=== PATIENT | female | born 1950 | race Caucasian/White ===

== ENCOUNTER 2025-02-16 08:46 | Outpatient (CLI) | payer OTHER, MEDICARE, SELFPAY ==
--- OUTSIDE RECORDS SUMMARY | 2025-02-16 08:53 | XMS_ITS | Clinical Summary ---
Author Organization [facility] Address [address] [place] [address] Care Team Providers Care Pressure Washer Name Role Phone Kimberlee Mcneil Primary Care Provider [phone] Allergies Active Allergy Reactions Criticality Noted Date Comments Meperidine Vomiting Low 09/15/2017 IV demerol make her vomit Medications losartan (COZAAR) 100 mg tablet Take 1 tablet by mouth daily 05/12/2021 Active hydroCHLOROthia zide (HYDRODIURIL) 25 mg tablet Take 1 tablet by mouth daily 05/12/2021 Active atenoloL (TENORMIN) 25 mg tablet Take 1 tablet by mouth daily 08/12/2021 Active potassium chloride ER (KLOR-CON) 10 mEq CR tablet Take 2 capsules by mouth daily 01/13/2021 Active Active Problems Problem Noted Date Diagnosed Date Sensorineural hearing loss (SNHL) of both ears 0 11/17/2021 Assessment & Plan (11/17/2021 11:14 AM CDT): Will obtain work up for Dizziness at [place] Continue potassium Call if no improvement in Dizziness for follow up with either myself or Physical therapy Dizziness and giddiness 11/17/2021 Assessment & Plan (11/17/2021 11:14 AM CDT): Will obtain work up for Dizziness at [place] Continue potassium Call if no improvement in Dizziness for follow up with either myself or Physical therapy Altaf quezadaumen 11/17/2021 Assessment & Plan (11/17/2021 11:18 AM CDT): Will obtain work up for Dizziness at [place] Continue potassium Call if no improvement in Dizziness for follow up with either myself or Physical therapy Follow up in one year for recheck Social History Tobacco Use Types Packs/Day Years Used Date Smoking Tobacco: Former Cigarettes Q uit: 2001 Tobacco Cessation:Counseling Given: Not Answered Personal Safety Answer Date Recorded Getting School Help Needed Not on file 05/15 Comments Unknown Sex and Gender Information Value Date Recorded Sex Assigned at Not on file Legal Sex Female 10:54 AM CDT Gender Identity Not on file Sexual Orientation Not on file Last Filed Vital Signs Vital Sign Reading Time Taken Comments Blood Pressure 141/69 11/17/2021 10:37 AM CDT Pulse 74 11/17/2021 10:37 AM CDT Temperature 36.3 C (97.4 F) 11/17/2021 10:37 AM CDT Respiratory Rate - - Oxygen Saturation 98% 11/17/2021 10:37 AM CDT Inhaled Oxygen Concentration - - Weight 90.8 kg (200 lb 1.6 oz) 11/17/2021 10:37 AM CDT Height 170.2 cm (5' 7) 11/17/2021 10:37 AM CDT Body Mass Index 31.34 11/17/2021 10:37 AM CDT Plan of Treatment Not on file Insurance CHOICE PLUS [facility] HMO/PPO Address: [facility] [address] [place] [address] Care Teams Pressure Washer Relationship Specialty Start Date End Date Kimberlee Mcneil PA [address] [place] [address] PCP - General Bottom Worker 08/19/21
--- OUTSIDE RECORDS SUMMARY | 2025-02-16 08:53 | XMS_ITS | Encounter Summary ---
Author Organization [facility] Address [address] [place] [address] Phone Care Team Providers Care Industrial Economics Teacher Name Role Phone Kimberlee Mcneil Primary Care Provider + Bill Garrido MD Unavailable [phone] Reason for Visit * Reason Comments Medication Refill Encounter Details Date Type Department Care Team (Late st Contact Info) Description 05/11/2021 Refill [facility] [address] [place] [address] Kimberlee Mcneil PAC [address] [place] [address] Medication Refill Social History Tobacco Use Types Packs/Day Years Used Date Smoking Tobacco: Former Cigarettes Smokeless Tobacco: Never Alcohol Use Standard Drinks/Week Comments Not Currently 0 (1 standard drink = 0.6 oz pure alcohol) Hasn't drank since of daughter 44 years ago. Personal Choice. PHQ-2 Answer Date Recorded Total Score - Questions 1-9 0 0704/2020 Education Answer Date Recorded What is the highest level of school you have completed or the highest degree you have received? Bachelor's degree (e.g., BA, AB, BS) 07/22/2020 Sexually Active Control Partners Comments Yes Male Comments No Sex and Gender Information Value Date Recorded Sex Assigned at Not on file Legal Sex Female 9:09 PM CDT Gender Identity Not on file Sexual Orientation Not on file COVID-19 Exposure Response Date Recorded In the last month, have you been in contact with someone who was confirmed or suspected to have Coronavirus / COVID-19? No / Unsure 05/01/2021 8:32 AM VENTILATING ENGINEER documented as of this encounter Miscellaneous Notes * Telephone Encounter - Betsy Yepez RN - 05/12/2021 10:29 AM CDT Medication failed the protocol, provider to review and approve the medication order if appropriate. Requested Prescriptions Pending Prescriptions Disp Refills hydroCHLOROthiazide 25 MG Tablet [Pharmacy Med Name: HYDROCHLOROTHIAZIDE 25 MG TAB] 90 Tablet 1 Sig: TAKE 1 TABLET BY MOUTH EVERY DAY Diuretics Protocol Failed - 05/11/2021 12:21 AM Failed - Serum potassium on record in past 12 months No results found for: POTASSIUM, POCTK Failed - Serum sodium on record in past 12 months No results found for: SODIUM Failed - GFR on record in past 12 months No results found for: GFRNA Passed - Blood pressure on record in past 12 months Clinician-entered: BP Readings from Last 3 Encounters: 01/20/21 138/80 07/23/20 122/82 02/26/20 118/72 Patient-entered: No data recorded Passed - Visit with relevant provider in past 12 months or upcoming 90 days Recent Visits Date Type Provider Dept 01/20/21 Office Visit Kimberlee Mcneil PAC [facility] 07/23/20 Office Visit Kimberlee Mcneil PAC [facility] Showing recent visits within past 365 days and meeting all other requirements Future Appointments Date Type Provider Dept 07/21/21 Appointment Kimberele Mcneil PAC [facility] Showing future appointments within next 90 days and meeting all other requirements documented in this encounter Plan of Treatment Upcoming Encounters Date Type Department Care Team (Late st Contact Info) Description 02/28/2025 12:45 PM VENTILATING ENGINEER Telemedicine [facility] [address] [place] [address] Deepika Gifford, MOBILE APPLICATION ARCHITECT [address] [place] [address] Discharge Disposition: Discharged to home or Selfcare 03/06/2025 9:20 AM VENTILATING ENGINEER Immunization [facility] [address] [place] [address] 03/12/2025 1:00 PM VENTILATING ENGINEER Telemedicine [facility] [address] [place] [address] Deepika Gifford, MOBILE APPLICATION ARCHITECT [address] [place] [address] Discharge Disposition: Discharged to home or Selfcare 03/19/2025 10:40 AM VENTILATING ENGINEER Office Visit [facility] [address] [place] [address] Kimberlee Mcneil, PAC [address] [place] [address] documented as of this encounter Goals Goal Patient Goal Type Associated Problems Recent Progress Patient-Stated? Author ANXIETY Anxiety On track( 025 1:38 PM VENTILATING ENGINEER) No Deepika Gifford, MOBILE APPLICATION ARCHITECT Note: Goal: Mariela to be able to report decreased anxiety/panic attacks/ability to cope with stressors, to an acceptable level, within the next three month. Goal Reviewed with: patient Readiness to change: Ready to change Department associated with goal: [facility] Steps to achieve goal: Mariela counseled on stress management, during her 45 min individual therapy sessions, 1-2 times per month Mariela counseled on recognizing and challenging negative and unrealistic thoughts, during her 45 min individual therapy sessions, 1-2 times per month I would like to feel calm. I would like ways to cope with stress. within the next three months Behavioral Health On track( 025 1:38 PM VENTILATING ENGINEER) Yes Khalida Flores, MOBILE APPLICATION ARCHITECT Note: Goal Reviewed with: patient Readiness to change: Ready to change Department associated with goal: [facility] Steps to achieve goal: Mariela to be counseled on coping with anxiety, including deep breathing and other relaxation techniques, during her 45 min individual therapy sessions, 1-2 times per month [place] to be counseled on cognitive behavioral therapy for distress tolerance/emotional regulation, during her 45 min individual therapy sessions, 1-2 times per month documented as of this encounter Visit Diagnoses Not on filedocumented in this encounter Additional Health Concerns Infection Onset Date Last Indicated Resolved Time COVID - 19 Confirmed 09/23/2021 09/23/2021 022 12:16 AM CDT Assessment Noted Time PHQ-9 Depression Total Score: 0 08/31/19 21 10:00 AM CDT documented as of this encounter Care Teams Industrial Economics Teacher Relationship Specialty Start Date End Date Kimberlee Mcneil PAC [address] [place] [address] PCP - General Physician Trolley Car Mechanic 03/18/17 Bill Garrido MD [address] [facility] [address] [address] Consulting Physician Otolaryngology 01/03/25 documented as of this encounter
--- OUTSIDE RECORDS SUMMARY | 2025-02-16 08:53 | XMS_ITS | Encounter Summary ---
Author Organization [facility] Address [address] [place] [address] Phone Care Team Providers Care Processing Manager Name Role Phone Kimberlee Mcneil Primary Care Provider + Bill Garrido MD Unavailable [phone] Reason for Visit * Reason Comments Medication Refill Encounter Details Date Type Department Care Team (Late st Contact Info) Description 06/30/2020 Refill [facility] [address] [place], [place] [id number] Kimberlee Mcneil, PAC [address] [place] [address] Medication Refill Social History Tobacco Use Types Packs/Day Years Used Date Smoking Tobacco: Former Cigarettes Smokeless Tobacco: Never Alcohol Use Standard Drinks/Week Comments Yes 0 (1 standard drink = 0.6 oz pur e alcohol) PHQ-2 Answer Date Recorded Total Score - Questions 1-9 0 09/2019 Comments No Sex and Gender Information Value Date Recorded Sex Assigned at Not on file Legal Sex Female 9:09 PM CDT Gender Identity Not on file Sexual Orientation Not on file documented as of this encounter Miscellaneous Notes * Telephone Encounter - Jenny Jon RN - 07/01/2020 11:20 AM CDT Medication failed the protocol, provider to review and approve the medication order if appropriate. Requested Prescriptions Pending Prescriptions Disp Refills hydroCHLOROthiazide 25 MG Tablet [Pharmacy Med Name: HYDROCHLOROTHIAZIDE 25 MG TAB] 30 Tablet 8 Sig: TAKE 1 TABLET BY MOUTH EVERY DAY Diuretics Protocol Failed - 06/30/2020 12:24 AM Failed - Normal serum creatinine in past 12 months No results found for: CREATININE Failed - Normal serum potassium in past 12 months No results found for: POTASSIUM, POCTK Failed - Normal serum sodium in past 12 months No results found for: SODIUM Passed - Blood pressure on record in past 12 months Clinician-entered: BP Readings from Last 3 Encounters: 02/26/20 118/72 08/07/19 132/78 10/12/18 132/64 Patient-entered: No data recorded Passed - Visit with relevant provider in past 12 months or upcoming 90 days Recent Visits Date Type Provider Dept 02/26/20 Office Visit Kimberlee Mcneil PAC [facility] 08/07/19 Office Visit Kimberlee Mcneil PAC [facility] Showing recent visits within past 365 days and meeting all other requirements Future Appointments Date Type Provider Dept 08/12/20 Appointment Kimberlee Mcneil PAC [facility] Showing future appointments within next 90 days and meeting all other requirements documented in this encounter Plan of Treatment Upcoming Encounters Date Type Department Care Team (Late st Contact Info) Description 02/28/2025 12:45 PM ADVICE CLERK [facility]icine [facility] [address] [place] [address] Deepika Gifford, RESTAURANT KITCHEN AND SERVICE MANAGER [address] [place] [address] Discharge Disposition: Discharged to home or Selfcare 03/06/2025 9:20 AM ADVICE CLERK Immunization [facility] [facility] [address] [place] [address] 03/12/2025 1:00 PM ADVICE CLERK [facility]medicine [facility] [address] [place] [address] Deepika Gifford, RESTAURANT KITCHEN AND SERVICE MANAGER [address] [place] [address] Discharge Disposition: Discharged to home or Selfcare 03/19/2025 10:40 AM ADVICE CLERK Office Visit [facility] [address] [place] [address] Kimberlee Mcneil PAC [address] [place] [address] documented as of this encounter Visit Diagnoses Not on filedocumented in this encounter Additional Health Concerns Infection Onset Date Last Indicated Resolved Time COVID - 19 Confirmed 09/23/2021 09/23/2021 022 12:16 AM CDT Assessment Noted Time PHQ-9 Depression Total Score: 0 08/07/19 20 8:42 AM CDT documented as of this encounter Care Teams Processing Manager Relationship Specialty Start Date End Date Kimberlee Mcneil PAC [address] [place] [address] PCP - General Physician Marine Electrician Helper 03/18/17 Bill Garrido MD [address] [address] Consulting Physician Otolaryngology 01/03/25 documented as of this encounter
--- OUTSIDE RECORDS SUMMARY | 2025-02-16 08:53 | XMS_ITS | Clinical Summary ---
Author Organization [facility] Visible Measures Address [address] [place] [address] Care Team Providers Care Scheduling Manager Name Role Phone Kimberlee Mcneil Primary Care Provider [phone] Source Comments [facility] Affiliates and Associated Physician Practices is amultiple site organization consisting of ambulatory clinics and hospital sitesin [place], [place], [place] and [place]. This disclosure is being madepursuant to the Care Everywhere program and may not contain all information available regarding this patient. Last updated 17.[facility]ible Measures Allergies Active Allergy Reactions Criticality Noted Date Comments Atorvastatin Psychiatric Medium 09/03/2022 Meperidine Vomiting Low 09/15/2017 IV demerol make her vomit IV demerol make her vomit Medications * Be aware that medications may not be up to date on this document. Alwaysverify current medications with the patient. acetaminophen (Tylenol) 500 MG tablet Take 1 (one) tablet by mouth every 4 hours as needed Active hydroCHLOROthia zide (Hydrodiuril) 25 MG tablet Take 1 (one) tablet by mouth once daily 3 Active losartan (Cozaar) 100 MG tablet Take 1 (one) tablet by mouth once daily 3 Active potassium chloride ER (Micro-K) 10 MEQ capsule Take 3 (three) capsules by mouth once daily 3 Active ondansetron (Zofran) 8 MG tabletIndicatio ns:Cancer Chemotherapy-In duced Nausea and Vomiting Take 1 (one) tablet by mouth every 8 hours as needed for Nausea/Vomiting Reasons: Nausea and Vomiting caused by Cancer Chemotherapy 30 tablet 3 4 Active Additional Information Patient not taking.Reason: Other (ntot needed), Reported on 01/10/2025 Loperamide HCl (IMODIUM A-D PO) Active prochlorperazin e (Compazine) 10 MG tabletIndicatio ns:Malignant neoplasm of exocervix (HCC),Chemother apy induced nausea and vomiting Take 1 (one) tablet by mouth every 8 hours as needed for Nausea/Vomiting 25 tablet 4 Active Additional Information Patient not taking.Reason: Other, Reported on 01/10/2025 omeprazole (PriLOSEC) 20 MG capsuleIndicati ons:Gastroesoph ageal reflux disease with esophagitis without hemorrhage TAKE 1 CAPSULE BY MOUTH EVERY DAY 90 capsule 1 4 Active vitamin D, ergocalciferol, (Drisdol) 1.25 MG (49376 UT) capsule Take 1 (one) capsule by mouth every 7 days (once a week) 4 Active lidocaine-prilo laron (Emla) 2.5-2.5 % cream APPLY 1 APPLICATION TO PORT 30-60 MINS PRIOR TO CHEMO/LABS 4 Active Magnesium Oxide -Mg Supplement 400 (240 Mg) MG TAKE 1 TABLET BY MOUTH EVERY DAY X7 DAYS 4 Active cyanocobalamin (Vitamin B-12) injection Inject 1,000 (one thousand) mcg into muscle 4 02/20/20 25 Active atenolol (Tenormin) 50 MG tablet Take 1 (one) tablet by mouth once daily 4 Active fluticasone propionate (Flonase) 50 MCG/ACT nasal spray [place] 2 (two) sprays into the nose once daily 5 Active Active Problems Problem Noted Date Diagnosed Date Hypokalemia 04/24/2023 Cervical cancer 03/19/2023 Cancer Staging:Clinical stage from 03/22/2023:FIGO Stage IIB(cT2b, cNX, cM0) - Signed by Tae Hernández MD on 03/22/2023 Sensorineural hearing loss (SNHL) of both ears 0 11/17/2021 04/28/2023 Overview (04/28/2023): Last Assessment & Plan: Will obtain work up for Dizziness at [facility] Continue potassium Call if no improvement in Dizziness for follow up with either myself or Physical therapy Generalized anxiety disorder 10/16/2020 Osteoporosis 03/16/2015 04/28/2023 Essential hypertension 03/16/2015 Encounters Date Type Department Care Team Description 01/15/2025 Telephone [facility] - SWEATBAND PERFORATOR [address] [place] [address] Trish Starks RN Results 01/10/2025 2:30 PM ANIMAL CARE TAKER Office Visit [facility] - SWEATBAND PERFORATOR [address] [place] [address] José Miguel Grewal MD Malignant neoplasm of exocervix (HCC) (Primary Dx) 01/10/2025 Travel 12/13/2024 11:29 AM CDT - 12/13/2024 11:59 PM CDT Hospital Encounter [facility] [address] [place] [address] José Miguel Grewal MD Discharge Disposition: Home or Self Care 12/13/2024 Travel from Last 3 Months Family History Medical History Relation Name Comments Cancer - Prostate Father Cancer - Lung Mother Relation Name Status Comments Father Mother Social History Tobacco Use Types Packs/Day Years Used Date Smoking Tobacco: Former Cigarettes Tobacco Cessation:Counseling Given: Not Answered Alcohol Use Standard Drinks/Week Comments Never 0 (1 standard drink = 0.6 oz pur e alcohol) PHQ-2 Answer Date Recorded Patient Health Questionnaire-2 Score 0 10/11/2024 Comments No Sex and Gender Information Value Date Recorded Sex Assigned at Not on file Legal Sex Female 12:02 PM CDT Gender Identity Not on file Sexual Orientation Not on file Last Filed Vital Signs Vital Sign Reading Time Taken Comments Blood Pressure 172/80 01/10/2025 2:08 PM ANIMAL CARE TAKER Pulse 66 12/13/2024 12:38 PM CDT Temperature 36 C (96.8 F) 12/13/2024 12:38 PM CDT Respiratory Rate 16 09/12/2024 10:0 5 AM CDT Oxygen Saturation 100% 06/13/2024 9:42 AM CDT Inhaled Oxygen Concentration - - Weight 105.4 kg (232 lb 6.4 oz) 01/10/2025 2:08 PM ANIMAL CARE TAKER Height 170.2 cm (5' 7) 01/10/2025 2:08 PM ANIMAL CARE TAKER Body Mass Index 36.4 01/10/2025 2:08 PM ANIMAL CARE TAKER Plan of Treatment Upcoming Encounters Date Type Department Care Team (Late st Contact Info) Description 03/15/2025 12:30 PM ANIMAL CARE TAKER Appointment [facility] [address] [place] [address] José Miguel Grewal MD [address] [place] [phone] 04/11/2025 2:30 PM ANIMAL CARE TAKER Office Visit [facility] - SWEATBAND PERFORATOR [address] [place] [address] José Miguel Grewal MD [address] [place] [address] Health Maintenance Due Date Last Done Comments COLOGUARD (AGES 45-75) - COLON CA SCREENING 1952 COLON MONITORING 1952 COLONOSCOPY - COLON CA SCREENING 1952 CT COLONOGRAPHY - COLON CA SCREENING 1952 Colorectal Cancer Screening 1952 FIT - COLON CA SCREENING 1952 FLEX SIG - COLON CA SCREENING 1952 HEPATITIS C SCREENING 08/18/1970 DTAP/TDAP/TD VACCINES (1 - Tdap) 08/23/1971 PNEUMOCOCCAL VACCINE 50+ (1 of 1 - PCV) 2002 Respiratory Syncytial Virus (RSV) Vaccine Pt: or over 60 yrs (1 - Risk 50-74 years 1-dose series) 2002 ZOSTER VACCINE (1 of 2) 2002 MAMMOGRAM 04/16/2024 04/16/2022, 04/01, 03/17/2021, Additional history exists COVID-19 VACCINE ( season) 2024 01/11/2022, 01/08/2021, 05/18/2020, Additional history exists INFLUENZA VACCINE (#1) 2024 4, 11/29/2022, 12/04/2021, Additional history exists SCREENING FOR DIABETES 06/27/2026 4, 06/21/2023, 06/14/2023, Additional history exists LIPID TESTING 02/24/2029 02/25/2024 BONE DENSITY TESTING Completed 03/17/2021, 09/22/19 18 DEPRESSION SCREENING Completed 03/15/2024, 03/24/19 24 HEPATITIS B VACCINE Aged Out No longe r eligible based on patient's age to complete this topic HIB VACCINE Aged Out No longer eligi ble based on patient's age to complete this topic HPV VACCINE Aged Out No longer eligi ble based on patient's age to complete this topic MENINGOCOCCAL (Group B) VACCINE SHARED DECISION-MAKING Aged Out No longer eligible based on patient's age to complete this topic MENINGOCOCCAL GROUPS A/C/Y/W VACCINE Aged Out No longer eligible based on patient's age to complete this topic Medical Devices Implanted Type Area Physical Optics Teacher Device Identifier Shelf Expiration Date Model / Serial / Lot Alex Sleeve Implanted:Qty: 1 on 05/25/2023 by José Miguel Grewal MD at [facility] N/A: Vagina NA / / Procedures Procedure Name Priority Date/Time Associated Diagnosis Comments PAP IMAGE-GUIDED Routine 01/10/2025 2:25 PM ANIMAL CARE TAKER Malignant neoplasm of exocervix (HCC) COMPREHENSIVE METABOLIC PANEL LIBBY 06/28/2023 9:41 AM CDT Malignant neoplasm of endocervix from Last 3 Months or Most Recently Relevant to Health Maintenance Results * PAP IMAGE-GUIDED (01/10/2025 2:25 PM ANIMAL CARE TAKER) Case Report Gynecologic Cytology Report Case: [id number] Authorizing Provider: José Miguel Grewal MD Collected: 01/10/2025 02:25 PM Ordering Location: [facility] - Received: 01/10/2025 02:25 PM SWEATBAND PERFORATOR First Screen: Edgar Kasper CT(ASCP) Pathologist: Benny Carlos MD Specimen: THINPREP - IMAGE GUIDED, Cervix/Endocervix 01/12/2025 3:33 PM ANIMAL CARE TAKER [facility] LMP n/a 01/12/2025 3:33 PM ANIMAL CARE TAKER [facility] Menstrual Status Postmenopausal 12/30 3:33 PM ANIMAL CARE TAKER [facility] Specimen Adequacy Satisfactory for evaluation, endocervical/trans formation zone component present. 01/12/2025 3:33 PM ANIMAL CARE TAKER [facility] Categorization Negative for intraepithelial lesion or malignancy. 01/12/2025 3:33 PM ANIMAL CARE TAKER [facility] Interpretation FILENET ARCHITECT Negative for Intraepithelial lesion or malignancy. Reactive cellular changes present. 01/12/2025 3:33 PM ANIMAL CARE TAKER [facility] at 1533 ANIMAL CARE TAKER Pap Footnote The Pap Smear is a screening test. False positive and false negative results occur. Negative results do not preclude abnormalities, thus clinical correlation is required. This specimen was evaluated by the ThinPrep Imaging System along with an additional manual rescreening by a railroad emergency services manager and/or pathologist. 01/12/2025 3:33 PM ANIMAL CARE TAKER [facility] Embedded Images 3:33 PM [facility] Pathology/Cytolo gy MISCELLANEOUS SAMPLES / Unknown Collection / Unknown 01/10/2025 2:25 PM ANIMAL CARE TAKER 01/10/2025 2:25 PM ANIMAL CARE TAKER us José Miguel Grewal MD LAB - PATHOLOGY/CYTOLOGY ORDER JACQUI Final Result [facility] [address] [place] [address], [facility] [phone] * (ABNORMAL) COMPREHENSIVE METABOLIC PANEL (06/28/2023 9:41 AM CDT) Glucose 103 70 - 105 mg/dL 06/28/2023 9:58 AM CDT [facility] Sodium 140 136 - 145 mmol/L 06/28/2023 9:58 AM [facility] Potassium 4.0 3.5 - 5.1 mmol/L 06/28/2023 9:58 AM [facility] Chloride 106 98 - 107 mmol/L 06/28/2023 9:58 AM [facility] CO2 24 22 - 29 mmol/L 06/28/2023 9:58 AM [facility] Calcium 9.3 8.4 - 10.4 mg/dL 06/28/2023 9:58 AM [facility] Anion Gap 10 6 - 16 mmol/L 06/28/2023 9:58 AM [facility] BUN 24 7 - 26 mg/dL 06/28/2023 9:58 AM [facility] Creatinine 1.29(H) 0.57 - 1.11 mg/dL 06/28/2023 9:58 AM [facility] Alkaline Phosphatase 90 40 - 150 U/L 06/28/2023 9:58 AM [facility] ALT 11 0 - 55 U/L 06/28/2023 9:58 AM [facility] AST 14 5 - 34 U/L 06/28/2023 9:58 AM [facility] Protein Total 6.5 6.4 - 8.3 gm/dL 06/28/2023 9:58 AM [facility] Albumin 3.3(L) 3.4 - 5.0 gm/dL 06/28/2023 9:58 AM [facility] Bilirubin Total 0.5 0.2 - 1.2 mg/dL 06/28/2023 9:58 AM [facility] eGFR by CKD-EPI 45(L) >=90 mL/min/1.7 3 m2 06/28/2023 9:58 AM [facility] Blood BLOOD SPECIMEN / Unknown Venipuncture / Unknown 06/28/2023 9:41 AM CDT 06/28/2023 9:41 AM T us José Miguel Grewal MD LAB - CHEMISTRY ORDERABLES Fin al Result [facility] [address] [place] [address] from Last 3 Months or Most Recently Relevant to Health Maintenance Insurance [facility] MEDICARE Care Teams Scheduling Manager Relationship Specialty Start Date End Date Kimberlee Mcneil PA [address] [place] [address] PCP - General Physician Aerial Crop Duster 03/10/23
--- OUTSIDE RECORDS SUMMARY | 2025-02-16 08:53 | XMS_ITS | Encounter Summary ---
Author Organization [facility] Address [address] [place] [address] Phone Care Team Providers Care Fishing Rod Trimmer Name Role Phone Kimberlee Mcneil Primary Care Provider + Bill Garrido MD Unavailable [phone] Encounter Details Date Type Department Care Team (Late st Contact Info) Description 02/10/2024 Behavioral Health Patient Survey [facility] [address] [place] [phone] Deepika Gifford, [facility] [address] [place] [address] Social History Tobacco Use Types Packs/Day Years Used Date Smoking Tobacco: Former Cigarettes 1 30 Smokeless Tobacco: Never Alcohol Use Standard Drinks/Week Comments Not Currently 0 (1 standard drink = 0.6 oz pure alcohol) Hasn't drank since of daughter 44 years ago. Personal Choice. [facility] Utilities Answer Date Recorded In the past 12 months has [place], gas, oil, or water company threatened to shut off services in your home? No 07/06/2023 Social Connection and Isolation Panel Answer Date Recorded In a typical week, how many times do you talk on the phone with family, friends, or neighbors? More than three times a week 07/06/2023 How often do you get togethe r with friends or relatives? Once a week 07/06/2023 How often do you attend chur ch or oriental orthodox services? More than 4 times per year 07/06/2023 Do you belong to any clubs o r organizations such as temple groups, unions, fraternal or athletic groups, or school groups? Yes 07/06/2023 How often do you attend meet ings of the clubs or organizations you belong to? 1 to 4 times per year 07/06/2023 Are you , , di vorced, , never , or living with a partner? 07/06/2023 AUDIT-C Answer Date Recorded Q1: How often do you have a drink containing alcohol? Never 07/06/2023 Q2: How many drinks containi ng alcohol do you have on a typical day when you are drinking? Patient does not drink Q3: How often do you have si x or more drinks on one occasion? Never 07/06/2023 Overall Financial Resource Strain (CARDIA) Answe r Date Recorded How hard is it for you to pa y for the very basics like food, housing, medical care, and heating? Not hard at all 07/06/2023 PHQ-2 Answer Date Recorded Total Score - Questions 1-9 0 07/2021 [facility] - Occupational Stress Questionnaire Answer Date Recorded Do you feel stress - tense, restless, nervous, or anxious, or unable to sleep at night because your mind is troubled all the time - these days? Rather much 07/06/2023 Exercise Vital Sign Answer Date Recorde d On average, how many days pe r week do you engage in moderate to strenuous exercise (like a brisk walk)? 0 days 07/06/2023 On average, how many minutes do you engage in exercise at this level? 0 min 07/06/2023 Hunger Vital Sign Answer Date Recorded Within the past 12 months, y ou worried that your food would run out before you got the money to buy more. Never true 07/06/19 24 Within the past 12 months, t he food you bought just didn't last and you didn't have money to get more. Never true 07/06/2023 PRAPARE - Transportation Answer Date Re corded In the past 12 months, has l ack of transportation kept you from medical appointments or from getting medications? No 08/2023 In the past 12 months, has l ack of transportation kept you from meetings, work, or from getting things needed for daily living? No 07/06/2023 Housing Stability Vital Sign Answer Gadiel e Recorded In the last 12 months, was t here a time when you were not able to pay the mortgage or rent on time? No 07/06/2023 In the last 12 months, how many places have you lived? 1 07/06/2023 In the last 12 months, was t here a time when you did not have a steady place to sleep or slept in a prison (including now)? No 07/06/2023 Education Answer Date Recorded What is the [...] on file documented as of this encounter Plan of Treatment Upcoming Encounters Date Type Department Care Team (Late st Contact Info) Description 02/28/2025 12:45 PM MANAGER CORPORATE STRATEGY Telemedicine [facility] [address] [place] [address] Deepika Gifford, [employer] [employer] [address] [place] [address] Discharge Disposition: Discharged to home or Selfcare 03/06/2025 9:20 AM MANAGER CORPORATE STRATEGY Immunization [facility] - [facility] - [place] [address] [place] [address] 03/12/2025 1:00 PM MANAGER CORPORATE STRATEGY Telemedicine [facility] [address] [place] [address] Deepika Gifford, [employer] [employer] [address] [place] [address] Discharge Disposition: Discharged to home or Selfcare 03/19/2025 10:40 AM MANAGER CORPORATE STRATEGY Office Visit [facility] - [facility] [address] [place] [address] Alizescoobyyasmine Kimberlee Mcdonough, PAC [address] [place] [address] documented as of this encounter Goals Goal Patient Goal Type Associated Problems Recent Progress Patient-Stated? Author ANXIETY Anxiety On track( 025 1:38 PM MANAGER CORPORATE STRATEGY) No Deepika Gifford, BANK RUNNER Note: Goal: Mariela to be able to report decreased anxiety/panic attacks/ability to cope with stressors, to an acceptable level, within the next three month. Goal Reviewed with: patient Readiness to change: Ready to change Department associated with goal: [facility] Steps to achieve goal: [...] Behavioral Health On track( 025 1:38 PM MANAGER CORPORATE STRATEGY) Yes Khalida Flores LCSW Note: Goal Reviewed with: patient Readiness to change: Ready to change Department associated with goal: [facility] Steps to achieve goal: Mariela to be counseled on coping with anxiety, including deep breathing and other relaxation techniques, during her 45 min individual therapy sessions, 1-2 times per month Mariela to be counseled on cognitive behavioral therapy for distress tolerance/emotional regulation, during her 45 min individual therapy sessions, 1-2 times per month documented as of this encounter Visit Diagnoses Not on filedocumented in this encounter Additional Health Concerns Assessment Noted Time PHQ-9 Depression Total Score: 0 08/31/19 21 10:00 AM CDT documented as of this encounter Care Teams Fishing Rod Trimmer Relationship Specialty Start Date End Date Kimberlee Mcneil PAC [address] [place] [address] PCP - General Physician Channel Worker 03/18/17 Bill Garrido MD [address] [place] [address] [address] Consulting Physician Otolaryngology 01/03/25 documented as of this encounter
--- OUTSIDE RECORDS SUMMARY | 2025-02-16 08:53 | XMS_ITS | Encounter Summary ---
Author Organization [facility] Address [address] [place] [address] Phone Care Team Providers Care Superintendent Meters Name Role Phone Kimberlee Mcneil Primary Care Provider + Bill Garrido MD Unavailable [phone] Reason for Visit * Reason Comments Medication Refill Encounter Details Date Type Department Care Team (Late st Contact Info) Description 08/09/2021 Refill [facility] [address] [place] [address] Kimberlee Mcneil PAC [address] [place] [address] Medication Refill Social History Tobacco Use Types Packs/Day Years Used Date Smoking Tobacco: Former Cigarettes 1 30 Smokeless Tobacco: Never Alcohol Use Standard Drinks/Week Comments Not Currently 0 (1 standard drink = 0.6 oz pure alcohol) Hasn't drank since of daughter 44 years ago. Personal Choice. PHQ-2 Answer Date Recorded Total Score - Questions 1-9 0 06/30 Education Answer Date Recorded What is the [...] Exposure Response Date Recorded In the last 10 days, have yo u been in contact with someone who was confirmed or suspected to have Coronavirus/COVID-19? No / Unsure 07/24/2021 9:05 AM CDT documented as of this encounter Miscellaneous Notes * Telephone Encounter - Karmen Andersen APRN, CNP - 08/11/2021 5:49 PM CDT Levels have not been checked in over a year and was within range last time. * Telephone Encounter - Betsy Yepez RN - 08/11/2021 10:44 AM CDT Medication failed the protocol, provider to review and approve the medication order if appropriate. Requested Prescriptions Pending Prescriptions Disp Refills ergocalciferol (VITAMIN D) 75122 UNIT Capsule [Pharmacy Med Name: VITAMIN D2 1.25MG(50,000 UNIT)] 4Capsule 5 Sig: TAKE 1 CAPSULE BY MOUTH ONCE PER WEEK Vitamin Supplements (Adult) Protocol Failed - 08/09/2021 1:31 PM Failed - Vitamin D less than 1.25mg Passed - Visit with relevant provider in past 12 months or upcoming 90 days Recent Visits Date Type Provider Dept 07/21/21 Office Visit Kimberlee Mcneil PAC [facility] 01/20/21 Office Visit Kimberlee Mcneil PAC [facility] Showing recent visits within past 365 days and meeting all other requirements Future Appointments Date Type Provider Dept 09/03/21 Appointment Kimberlee Mcneil PAC [facility] Showing future appointments within next 90 days and meeting all other requirements documented in this encounter Plan of Treatment Upcoming Encounters Date Type Department Care Team (Late st Contact Info) Description 02/28/2025 12:45 PM PHARMACOLOGY ASSOCIATE Telemedicine [facility] [address] [place] [address] Deepika Gifford, ELEVATOR CONSTRUCTOR SUPERVISOR [address] [place] [address] Discharge Disposition: Discharged to home or Selfcare 03/06/2025 9:20 AM PHARMACOLOGY ASSOCIATE Immunization [facility] [place] [place] [address] [place] [address] 03/12/2025 1:00 PM PHARMACOLOGY ASSOCIATE Telemedicine [facility] [address] [place] [address] Deepika Gifford, ELEVATOR CONSTRUCTOR SUPERVISOR [address] [place] [address] Discharge Disposition: Discharged to home or Selfcare 03/19/2025 10:40 AM PHARMACOLOGY ASSOCIATE Office Visit [facility] [place] [place] [address] [place] [address] Kimberlee Mcneil, [facility] [address] [place] [address] documented as of this encounter Goals Goal Patient Goal Type Associated Problems Recent Progress Patient-Stated? Author ANXIETY Anxiety On track( 025 1:38 PM PHARMACOLOGY ASSOCIATE) No Deepika Gifford, ELEVATOR CONSTRUCTOR SUPERVISOR Note: Goal: Mariela to be able to report decreased anxiety/panic attacks/ability to cope with stressors, to an acceptable level, within the next three month. Goal Reviewed with: patient Readiness to change: Ready to change Department associated with goal: [facility] Steps [...] Behavioral Health On track( 025 1:38 PM PHARMACOLOGY ASSOCIATE) Yes Khalida Flores, ELEVATOR CONSTRUCTOR SUPERVISOR Note: Goal Reviewed with: patient Readiness to change: Ready to change Department associated with goal: [facility] Steps to achieve [...] documented as of this encounter Care Teams Superintendent Meters Relationship Specialty Start Date End Date Kimberlee Mcneil PAC [address] [place] [address] PCP - General Physician Maid Housekeeper 03/18/17 Bill Garrido MD [address] [facility] [place] [address] [address] Consulting Physician Otolaryngology 01/03/25 documented as of this encounter
--- OUTSIDE RECORDS SUMMARY | 2025-02-16 08:53 | XMS_ITS | Encounter Summary ---
Author Organization [facility] Address [address] [place] [address] Phone Care Team Providers Care Lamp Developer Name Role Phone Kimberlee Mcneil Primary Care Provider + Bill Garrido MD Unavailable [phone] Reason for Visit * Reason Comments Medication Refill Encounter Details Date Type Department Care Team (Late st Contact Info) Description 08/11/2021 Refill [facility] [address] [place] [address] Kimberlee Mcneil PAC [address] [place] [address] Medication Refill Social History Tobacco Use Types [...] Telephone Encounter - Betsy Yepez RN - 08/12/2021 2:51 PM CDT Medication failed the protocol, provider to review and approve the medication order if appropriate. Requested Prescriptions Pending Prescriptions Disp Refills busPIRone (BUSPAR) 5 MG Tablet [Pharmacy Med Name: BUSPIRONE HCL 5 MG TABLET] 90 Tablet 5 Sig: TAKE 1 TABLET BY MOUTH THREE TIMES A DAY Buspirone (6 Month Refill Only) Protocol Failed - 08/11/2021 5:58 PM Failed - Patient has established therapy with Buspirone for at least 6 months Passed - Visit with relevant provider in past 6 months or upcoming 90 days Recent Visits Date Type Provider Dept 07/21/21 Office Visit Kimberlee Mcneil PAC [facility] Showing recent visits within past 182 days and meeting all other requirements Future Appointments Date Type Provider Dept 09/03/21 Appointment Kimberlee Mcneil PAC [facility] Showing future appointments within next 90 days and meeting all other requirements Passed - Has an encounter in the past 6 months with a depression or anxiety visit diagnosis atenolol (TENORMIN) 25 MG Tablet [Pharmacy Med Name: ATENOLOL 25 MG TABLET] 90 Tablet 1 Sig: TAKE 1 TABLET BY MOUTH EVERY DAY Atenolol Protocol Passed - 08/11/2021 5:58 PM Passed - BP on record in the past year Clinician-entered: BP Readings from Last 3 Encounters: 07/21/21 148/80 01/20/21 138/80 07/23/20 122/82 Patient-entered: No data recorded Passed - Visit with relevant provider in past 12 months or upcoming 90 days Recent Visits Date Type Provider Dept 07/21/21 Office Visit Kimberlee Mcneil PAC [facility] 01/20/21 Office Visit Kimberlee Mcneil PAC [facility] Showing recent visits within past 365 days and meeting all other requirements Future Appointments Date Type Provider Dept 09/03/21 Appointment Chelyyasmine AnnieSAULO [facility] Showing future appointments within next 90 days and meeting all other requirements documented in this encounter Plan of Treatment Upcoming Encounters Date Type Department Care Team (Late st Contact Info) Description 02/28/2025 12:45 PM BUILD TECHNICIAN Telemedicine [facility] [address] [place] [address] Deepika Gifford, BUTTON BROACHER [address] [place] [address] Discharge Disposition: Discharged to home or Selfcare 03/06/2025 9:20 AM BUILD TECHNICIAN Immunization [facility] [address] [place] [address] 03/12/2025 1:00 PM BUILD TECHNICIAN Telemedicine [facility] Services [address] [place] [address] Deepika Gifford, BUTTON BROACHER [address] [place] [address] Discharge Disposition: Discharged to home or Selfcare 03/19/2025 10:40 AM BUILD TECHNICIAN Office Visit [facility] [address] [place] [address] Kimberlee Mcneil, PAC [address] [place] [address] documented as of this encounter Goals Goal Patient Goal Type Associated Problems Recent Progress Patient-Stated? Author ANXIETY Anxiety On track( 025 1:38 PM BUILD TECHNICIAN) No Deepika Gifford, BUTTON BROACHER Note: Goal: Mariela to be able to report decreased anxiety/panic attacks/ability to cope with stressors, to an acceptable level, within the next three month. Goal Reviewed with: patient Readiness to change: Ready to change Department associated with goal: [facility] Steps to achieve [...] Behavioral Health On track( 025 1:38 PM BUILD TECHNICIAN) Yes Khalida Flores, BUTTON BROACHER Note: Goal Reviewed with: patient Readiness to change: Ready to change Department associated with goal: [facility] Steps to achieve [...] documented as of this encounter Care Teams Lamp Developer Relationship Specialty Start Date End Date Kimberlee Mcneil PAC [address] [place] [address] PCP - General Physician Plater Supervisor 03/18/17 Bill Garrido MD [address] [address] Consulting Physician Otolaryngology 01/03/25 documented as of this encounter
--- OUTSIDE RECORDS SUMMARY | 2025-02-16 08:53 | XMS_ITS | Encounter Summary ---
Author Organization [facility] Address [address] [place] [address] Phone Care Team Providers Care Disc Jockey Name Role Phone Kimberlee Mcneil Primary Care Provider + Bill Garrido MD Unavailable [phone] Encounter Details Date Type Department Care Team (Late st Contact Info) Description 04/24/2024 Behavioral Health Patient Survey [facility] [address] [place] [address] Deepika Gifford, [facility] [address] [place] [address] Social History Tobacco Use Types Packs/Day Years Used Date Smoking Tobacco: Former Cigarettes 1 30 Smokeless Tobacco: Never Alcohol Use Standard Drinks/Week Comments Not Currently 0 (1 standard drink = 0.6 oz pure alcohol) Hasn't drank since of daughter 44 years ago. Personal Choice. [facility] Utilities Answer Date Recorded In the past 12 months has [employer], gas, oil, or water company threatened to [...] often do you attend chur ch or buddhism services? More than 4 times per year 07/06/2023 Do you belong to any clubs o r organizations such as mandaen groups, unions, fraternal or athletic groups, or [...] Recorded Total Score - Questions 1-9 0 04/02 [facility] of Occupat ional Health - Occupational Stress [...] place to sleep or slept in a alf (including now)? No 07/06/2023 Education Answer Date [...] on file documented as of this encounter Functional Status * BP Answer Date of Assessment Author 150/74 04/24/2024 10:46 AM Maynor Herrera CMA * Temp Answer Date of Assessment Author 97.4 04/24/2024 10:46 AM Maynor Herrera CMA * Pulse Answer Date of Assessment Author 53 04/24/2024 10:46 AM Maynor Herrera CMA * SpO2 Answer Date of Assessment Author 100 04/24/2024 10:46 AM Maynor Herrera CMA * Question Answer Date of Assessment Author Has the patient fallen twice in the past year without injury or once in the past year with injury? No 04/24/2024 11:08 AM Sammi Kent CMA Does the patient report or d o you observe difficulty in gait or balance? No 04/24/2024 11:08 AM Sammi Herrera CMA * Question Answer Date of Assessment Author Little interest or pleasure in doing things Not at all 04/24/2024 11:08 AM Sammi Herrera CMA Feeling down, depressed, or hopeless Not at all 04/24/2024 11:08 AM Sammi Herrera CMA * Initial Score Answer Date of Assessment Author 0 04/24/2024 11:08 AM Maynor Herrera CMA * Question Answer Date of Assessment Author Has the patient fallen twice in the past year without injury or once in the past year with injury? No 04/24/2024 11:08 AM Sammi Kent CMA Does the patient report or d o you observe difficulty in gait or balance? No 04/24/2024 11:08 AM Sammi Herrera CMA * Question Answer Date of Assessment Author Little interest or pleasure in doing things Not at all 04/24/2024 11:08 AM Sammi Herrera CMA Feeling down, depressed, or hopeless Not at all 04/24/2024 11:08 AM Sammi Herrera CMA * Initial Score Answer Date of Assessment Author 0 04/24/2024 11:08 AM Maynor Herrera CMA * Over the past 2 weeks, how often have you been bothered by any of the following problems? Question Answer Date of Assessment Author Patient Health Questionnaire -2 Score 0 04/24/2024 11:08 AM Sammi Herrera CMA documented as of this encounter Mental Status * BP Answer Entry Date Author 150/74 04/24/2024 10:46 AM Maynor Herrera CMA * Temp Answer Entry Date Author 97.4 04/24/2024 10:46 AM Maynor Herrera CMA * Pulse Answer Entry Date Author 53 04/24/2024 10:46 AM Maynor Herrera CMA * SpO2 Answer Entry Date Author 100 04/24/2024 10:46 AM Maynor Herrera CMA * Question Answer Entry Date Author Has the patient fallen twice in the past year without injury or once in the past year with injury? No 04/24/2024 11:08 AM Sammi Kent CMA Does the patient report or d o you observe difficulty in gait or balance? No 04/24/2024 11:08 AM Sammi Herrera CMA * Question Answer Entry Date Author Little interest or pleasure in doing things Not at all 04/24/2024 11:08 AM Sammi Herrera CMA Feeling down, depressed, or hopeless Not at all 04/24/2024 11:08 AM CALLISTHENICS INSTRUCTOR Sammi Combs CMA * Initial Score Answer Entry Date Author 0 04/24/2024 11:08 AM CALLISTHENICS INSTRUCTOR Maynor Combs CMA documented in this encounter Plan of Treatment Upcoming Encounters Date Type Department Care Team (Late st Contact Info) Description 02/28/2025 12:45 PM CALLISTHENICS INSTRUCTOR Telemedicine [facility] [address] [place] [address] Deepika Gifford, FINANCING ANALYST [address] [place] [address] Discharge Disposition: Discharged to home or Selfcare 03/06/2025 9:20 AM CALLISTHENICS INSTRUCTOR Immunization [facility] [address] [place] [address] 03/12/2025 1:00 PM CALLISTHENICS INSTRUCTOR Telemedicine [facility] [address] [place] [address] Deepika Gifford, FINANCING ANALYST [address] [place] [address] Discharge Disposition: Discharged to home or Selfcare 03/19/2025 10:40 AM CALLISTHENICS INSTRUCTOR Office Visit [facility] [address] [place] [address] Kimberlee Mcneil, PAC [address] [place] [address] documented as of this encounter Goals Goal Patient Goal Type Associated Problems Recent Progress Patient-Stated? Author ANXIETY Anxiety On track( 025 1:38 PM CALLISTHENICS INSTRUCTOR) No Deepika Gifford, FINANCING ANALYST Note: Goal: Gale to be able to report decreased anxiety/panic attacks/ability to cope with stressors, to an acceptable level, within the next three month. Goal Reviewed with: patient Readiness to change: Ready to change Department associated with goal: [facility] Steps [...] Behavioral Health On track( 025 1:38 PM CALLISTHENICS INSTRUCTOR) Yes Khalida Flores, FINANCING ANALYST Note: Goal Reviewed with: patient Readiness to change: Ready to change Department associated with goal: [facility] Steps [...] Noted Time PHQ-9 Depression Total Score: 0 04/24/19 25 11:08 AM CALLISTHENICS INSTRUCTOR documented as of this encounter Care Teams Disc Jockey Relationship Specialty Start Date End Date Kimberlee Mcneil PAC [address] [place] [address] PCP - General Physician Marketing Compliance Manager 03/18/17 Bill Garrido MD [address] [address] Consulting Physician Otolaryngology 01/03/25 documented as of this encounter
--- OUTSIDE RECORDS SUMMARY | 2025-02-16 08:53 | XMS_ITS | Encounter Summary ---
Author Organization [facility] Address [address] [place] [address] Phone Care Team Providers Care Immigration Case Worker Name Role Phone Kimberlee Mcneil Primary Care Provider + Bill Garrido MD Unavailable [phone] Encounter Details Date Type Department Care Team (Late st Contact Info) Description 03/13/2024 Behavioral Health Patient Survey [facility] [address] [place] [id number] Deepika Gifford, [facility] [address] [place] [address] Social History Tobacco Use Types Packs/Day Years Used Date Smoking Tobacco: Former Cigarettes 1 30 Smokeless Tobacco: Never Alcohol Use Standard Drinks/Week Comments Not Currently 0 (1 standard drink = 0.6 oz pure alcohol) Hasn't drank since of daughter 44 years ago. Personal Choice. [facility] Utilities Answer Date Recorded In the past 12 months has [employer], gas, oil, or water company threatened to [...] often do you attend chur ch or taoism services? More than 4 times per year 07/06/2023 Do you belong to any clubs o r organizations such as presybeterian groups, unions, fraternal or athletic groups, or [...] Total Score - Questions 1-9 0 07/2021 [facility] of Occupat ional Health - Occupational [...] place to sleep or slept in a penitentiary (including now)? No 07/06/2023 Education Answer Date [...] st Contact Info) Description 02/28/2025 12:45 PM HUMANITIES TEACHER Telemedicine [facility] [address] [place] [address] Deepika Gifford, LEAD BASED PAINT TECHNICIAN [address] [place] [address] Discharge Disposition: Discharged to home or Selfcare 03/06/2025 9:20 AM HUMANITIES TEACHER Immunization [facility] [place] [address] [place] [address] 03/12/2025 1:00 PM HUMANITIES TEACHER Telemedicine [facility] [address] [place] [address] Deepika Gifford, LEAD BASED PAINT TECHNICIAN [address] [place] [address] Discharge Disposition: Discharged to home or Selfcare 03/19/2025 10:40 AM HUMANITIES TEACHER Office Visit [facility] [address] [place] [address] Alizescoobyyasmine Kimberlee Mcdonough, PAC [address] [place] [address] documented as of this encounter Goals Goal Patient Goal Type Associated Problems Recent Progress Patient-Stated? Author ANXIETY Anxiety On track( 025 1:38 PM HUMANITIES TEACHER) No Deepika Gifford, LEAD BASED PAINT TECHNICIAN Note: Goal: Mariela to be able to report decreased anxiety/panic attacks/ability to cope with stressors, to an acceptable level, within the next three month. Goal Reviewed with: patient Readiness to change: Ready to change Department associated with goal: [facility] Steps to achieve goal: Marieal counseled on stress management, during her 45 min individual therapy sessions, 1-2 times per month Mariela counseled on recognizing and challenging negative and unrealistic thoughts, during her 45 min individual therapy sessions, 1-2 times per month I would like to feel calm. I would like ways to cope with stress. within the next three months Behavioral Health On track( 025 1:38 PM HUMANITIES TEACHER) Yes Khalida Flores LCSW Note: Goal Reviewed with: patient Readiness to change: Ready to change Department associated with goal: [facility] Steps to [...] documented as of this encounter Care Teams Immigration Case Worker Relationship Specialty Start Date End Date Kimberlee Mcneil PAC [address] [place] [address] PCP - General Physician Well Services Operator 03/18/17 Bill Garrido MD [address] [place] [address] [address] Consulting Physician Otolaryngology 01/03/25 documented as of this encounter
--- OUTSIDE RECORDS SUMMARY | 2025-02-16 08:53 | XMS_ITS | Clinical Summary ---
Author Organization [facility] Address [address] [address] Phone Care Team Providers Care Transitional Studies Instructor Name Role Phone Kimberlee Mcneil Primary Care Provider + Bill Garrido MD Unavailable [phone] Allergies Active Allergy Reactions Criticality Noted Date Comments Meperidine Vomiting 09/15/2017 IV demerol make her vomit Atorvastatin Anxiety 09/03/2022 Medications acetaminophen (TYLENOL) 500 MG Tablet Take 500 mg by mouth every 4 hours as needed. Active lidocaine-prilo laron 2.5-2.5 % Cream APPLY 1 APPLICATION TO PORT 30-60 MINS PRIOR TO CHEMO/LABS 4 Active ergocalciferol (VITAMIN D) 06803 UNIT CapsuleIndicati ons:Vitamin D deficiency TAKE 1 CAPSULE BY MOUTH ONE TIME PER WEEK 12 Capsule 1 5 Active hydroCHLOROthia zide 25 MG Tablet TAKE 1 TABLET BY MOUTH EVERY DAY 90 Tablet 1 5 Active losartan (COZAAR) 100 MG Tablet TAKE 1 TABLET BY MOUTH EVERY DAY 90 Tablet 1 5 Active atenolol (TENORMIN) 50 MG Tablet TAKE 1 AND 1/2 TABLETS DAILY BY MOUTH 135 Tablet 1 5 Active omeprazole (PriLOSEC) 20 MG CAPSULE DELAYED RELEASE TAKE 1 CAPSULE BY MOUTH EVERY DAY 90 Capsule 1 5 Active potassium chloride (MICRO-K) 10 MEQ Capsule CR TAKE 3 CAPSULES BY MOUTH EVERY DAY 270 Capsule 1 5 Active ofloxacin (FLOXIN) 0.3 % SolutionIndicat ions:Infective otitis externa of right ear Postop- administer 3 drops in right ear twice daily for 3 days. 5 mL 5 Active fluticasone (FLONASE) 50 MCG/ACT SuspensionIndic ations:Allergic rhinitis, unspecified seasonality, unspecified trigger 2 Sprays by Nasal route daily for 30 days. Use in each nostril as directed. 9.9 mL 2 5 02/03/20 Hospital, Clinic, or Other Facility Administered Medication Ordered Dose Route Frequency Start Date End Date Status cyanocobalamin (VITAMIN B-12) injection 1,000 mcgIndications:B12 deficiency 1000 mcg IM ONCE 02/02/2025 02/02/2025 Ended Active Problems Problem Noted Date Diagnosed Date Generalized anxiety disorder 10/16/2020 Screening mammogram, encounter for 01/11/2017 Annual physical exam (Adult) 09/22/2016 Essential hypertension 03/16/2015 Osteoporosis 03/16/2015 Hypokalemia 03/16/2015 Encounters Date Type Department Care Team Description 02/05/2025 1:00 PM DENTAL SURGEON [facility] [address] [place] [address] Deepika Gifford, ANTONIO Generalized anxiety disorder (Primary Dx) Discharge Disposition: Discharged to home or Selfcare 02/02/2025 9:20 AM DENTAL SURGEON Immunization [facility] [address] [place] [address] B12 deficiency (Primary Dx) Discharge Disposition: Discharged to home or Selfcare 02/02/2025 Travel 01/22/2025 1:00 PM DENTAL SURGEON [facility] [address] [place] [address] Deepika Gifford, ENGINEER FIRST ASSISTANT Generalized anxiety disorder (Primary Dx) Discharge Disposition: Discharged to home or Selfcare 01/22/2025 Travel 01/05/2025 1:00 PM DENTAL SURGEON Telemedicine [facility] [address] [place] [phone] Deepika Gifford, ENGINEER FIRST ASSISTANT Generalized anxiety disorder (Primary Dx) Discharge Disposition: Discharged to home or Selfcare 01/05/2025 Travel 01/03/2025 10:40 AM DENTAL SURGEON [facility] [place] [phone] B12 deficiency (Primary Dx) Discharge Disposition: Discharged to home or Selfcare 01/03/2025 8:30 AM DENTAL SURGEON Office Visit [facility] [address] [place] [phone] Kimberlee Mcneil PAC Alkarmi, Ayham, MD Hearing loss, unspecified hearing loss type, unspecified laterality (Primary Dx); Impacted cerumen of both ears; Allergic rhinitis, unspecified seasonality, unspecified trigger; Infective otitis externa of right ear; Dizziness; Vertigo; Tinnitus of both ears Discharge Disposition: Discharged to home or Selfcare 01/03/2025 Travel 12/21/2024 Telephone [facility] [address] [place] [phone] Bill Garrido MD Need Order 12/19/2024 [facility]ill [facility] [place] [address] Kimberlee Mcneil PAC Medication Refill 12/18/2024 1:00 PM CDT Telemedicine [facility] [address] [place] [phone] Deepika Gifford, ENGINEER FIRST ASSISTANT Generalized anxiety disorder (Primary Dx) Discharge Disposition: Discharged to home or Selfcare 12/18/2024 Travel 12/12/2024 [facility] [place] [phone] Kimberlee Mcneil, SAULO Medication Refill 12/04/2024 1:00 PM CDT Telemedicine [facility] [address] [place] [address] Deepika Gifford, ANTONIO Generalized anxiety disorder (Primary Dx) Discharge Disposition: Discharged to home or Selfcare 12/04/2024 9:20 AM CDT Immunization [facility] [address] [place] [address] B12 deficiency (Primary Dx) Discharge Disposition: Discharged to home or Selfcare 12/04/2024 Travel 11/20/2024 1:00 PM CDT [facility] [address] [place] [address] Deepika Gifford, ANTONIO Generalized anxiety disorder (Primary Dx) Discharge Disposition: Discharged to home or Selfcare 11/20/2024 Travel from Last 3 Months Immunizations Immunization Administration Dates Next Due Covid-19, Mrna, Lnp-s, Bival ent, Moderna, 50 Mcg or 25 mcg dose 01/11/2022 Covid-19, Mrna, Lnp-s, PF, 1 00 mcg/0.5 mL Dose (Moderna) 05/18/2020,04/20/2020 Influenza Vaccine greater than 3 yrs 05/2016,12/14/2015,11/29/2014,2008 Influenza Vaccine, Quadrivalent, PF 12/13/2017 Influenza, High-dose, Quadrivalent 11/29/2022, Influenza, Quadrivalent, Adjuvanted 12/04/2021 Influenza, Seasonal, Injecta ble, Undefined 12/02/2016,12/14/2015,11/29/2014,2008 Influenza, Trivalent, Adjuvanted, PF 12/09/2023 Pneumococcal Vaccine - 13 Valent 09/15/2017 Pneumococcal Vaccine Adult - 23 Valent 10/12/2018 Family History Medical History Relation Name Comments No Known Problems Brother Nnamdi Cancer Father Angel Bello Hypertension Father Angel Bello Cancer Mother Karen Fett Hypertension Mother Karen Fett Osteoarthritis Mother Karen Fett Relation Name Status Comments Brother Nnamdi Alive Father Angel Fett Alive Mother Karen Fett Alive Social History Tobacco Use Types Packs/Day Years Used Date Smoking Tobacco: Former Cigarettes 1 30 Smokeless Tobacco: Never Tobacco Cessation:Counseling Given: Not Answered Alcohol Use Standard Drinks/Week Comments Not Currently 0 (1 standard drink = 0.6 oz pure alcohol) Hasn't drank since of daughter 44 years ago. Personal Choice. [facility] Utilities Answer Date Recorded In the past 12 months has th e [employer], gas, oil, or water [employer] threatened to shut off services in your home? No 07/06/2023 Social Connection and Isolation Panel Answer Date Recorded In a typical week, how many times do you talk on the phone with family, friends, or neighbors? More than three times a week 07/06/2023 How often do you get togethe r with friends or relatives? Once a week 07/06/2023 How often do you attend [facility] or [facility] services? More than 4 times per year 07/06/2023 Do you belong to any clubs o r organizations such as restoration groups, unions, fraternal or athletic groups, or [...] Total Score - Questions 1-9 0 04/02 [facility] [place] of Occupat ional Health - Occupational Stress [...] place to sleep or slept in a mcfp (including now)? No 07/06/2023 Education Answer Date [...] Sign Reading Time Taken Comments Blood Pressure 130/100 01/03/2025 8:27 AM DENTAL SURGEON Pulse 73 01/03/2025 8:27 AM DENTAL SURGEON Temperature 36.7 C (98 F) 11/10/2024 1:24 PM CDT Respiratory Rate 20 01/03/2025 8:27 AM DENTAL SURGEON Oxygen Saturation 99% 01/03/2025 8:27 AM DENTAL SURGEON Inhaled Oxygen Concentration - - Weight 104.8 kg (231 lb) 01/03/2025 8:27 AM DENTAL SURGEON Height 170.2 cm (5' 7) 01/03/2025 8:27 AM DENTAL SURGEON Body Mass Index 36.18 01/03/2025 8:27 AM DENTAL SURGEON Plan of Treatment Upcoming Encounters Date Type Department Care Team (Late st Contact Info) Description 02/28/2025 12:45 PM DENTAL SURGEON [facility] [address] [place] [address] Deepika Gifford, ENGINEER FIRST ASSISTANT [address] [place] [address] Discharge Disposition: Discharged to home or Selfcare 03/06/2025 9:20 AM DENTAL SURGEON [facility] [place] [address] 03/12/2025 1:00 PM DENTAL SURGEON [facility] [address] [place] [address] Deepika Gifford, ENGINEER FIRST ASSISTANT [address] [place] [address] Discharge Disposition: Discharged to home or Selfcare 03/19/2025 10:40 AM DENTAL SURGEON Office Visit [facility] [address] [place] [address] Kimberlee Mcneil, ASULO [address] [place] [address] Health Maintenance Due Date Last Done Comments Hepatitis C Virus (HCV) Screening 1950 TdaP Immunization 1950 Cologuard 1997 Colonoscopy 1997 Colorectal Cancer Screening 1997 Immunochemical Fecal Occult Blood 1997 Zoster Immunization (1 of 2) 2002 DEXA Bone Density 03/17/2023 03/17/2021, 09/21/2017 Mammogram 04/16/2023 04/16/2022, 03/01, 10/13/2016 SARS-COV-2 Immunization ( season) 2024 02/25/2023, 01/11/2022, 01/08/2021, Additional history exists Respiratory Syncytial Virus (RSV) Immunization (Adult) (1 - 1-dose 75+ series) 08/23/2027 Pneumococcal Immunization (50+ years) Completed 10/12/2018, 09/15/2017 Pneumococcal Immunization Combined Discontinued 10/12/2018, 09/15/2017 Influenza Immunization Completed , 12/09/2023, 11/29/2022, Additional history exists Hepatitis B Immunization Aged Out No longer eligible based on patient's age to complete this topic Human Papillomavirus (HPV) Immunization (No Doses Required) Completed Meningococcal Immunization (ACWY) Aged Out No longer eligible based on patient's age to complete this topic Rotavirus Immunization Aged Out No lo nger eligible based on patient's age to complete this topic Goals Goal Patient Goal Type Associated Problems Recent Progress Patient-Stated? Author ANXIETY Anxiety On track( 025 1:38 PM DENTAL SURGEON) No Deepika Gifford, ENGINEER FIRST ASSISTANT Note: Goal: Mariela to be able to report decreased anxiety/panic attacks/ability to cope with stressors, to an acceptable level, within the next three month. Goal Reviewed with: patient Readiness to change: Ready to change Department associated with goal: [facility] Steps [...] Behavioral Health On track( 025 1:38 PM DENTAL SURGEON) Yes Khalida Flores, ENGINEER FIRST ASSISTANT Note: Goal Reviewed with: patient Readiness to change: Ready to change Department associated with goal: [facility] Steps to achieve goal: Mariela to be counseled on coping with anxiety, including deep breathing and other relaxation techniques, during her 45 min individual therapy sessions, 1-2 times per month Mariela to be counseled on cognitive behavioral therapy for distress tolerance/emotional regulation, during her 45 min individual therapy sessions, 1-2 times per month Procedures Procedure Name Priority Date/Time Associated Diagnosis Comments REMOVE IMPACTED EAR WAX VIA INSTRUMENT BILAT Routine 01/03/2025 8:30 AM DENTAL SURGEON Impacted cerumen of both ears [facility] SCREENING BILATERAL DIGITAL W CAD W MAE Routine 04/16/2022 11:07 AM DENTAL SURGEON Screening mammogram for breast cancer [facility] BONE DENSITOMETRY AXIAL SKELETON Routine 03/17/2021 10:10 AM DENTAL SURGEON Low bone mass from Last 3 Months or Most Recently Relevant to Health Maintenance Results * REMOVE IMPACTED EAR WAX VIA INSTRUMENT BILAT (01/03/2025 8:30 AM DENTAL SURGEON) Narrative Bill Garrido MD - 01/03/2025 8:30 AM DENTAL SURGEON Bill Garrido MD 01/03/2025 9:12 AM PROCEDURE PERFORMED: Removal of bilateral Impacted Cerumen Risks, benefits and alternatives were discussed with the patient. Specific risks include irritation of the canal, bleeding, infection or need for additional procedures. Benefits include improvement of ear canal obstruction, and alternative includes observation or [id number] remedies at home if they are candidate. After obtaining informed consent, the patient was placed in a semi-reclining position in the exam chair. The operative otoscope was used to visualize the both ear canals . Impacted/obstructing cerumen was noted in both sides . Cerumen removal was accomplished using suction The left tympanic membrane was visualized and noted to be intact and normal. The right tympanic membrane was visualized and noted to be intact and normal. The patient tolerated this well without complications. Bill Garrido MD PROCEDURE/MINOR SURGICAL ORDERA BLES Final Result * [facility] SCREENING BILATERAL DIGITAL W CAD W MAE (04/16/2022 11:07 AM DENTAL SURGEON) Anatomical Region Laterality Modality breast Bilateral Mammography 04/16/2022 10:2 6 AM DENTAL SURGEON Narrative 04/17/2022 8:57 AM DENTAL SURGEON - [facility]EUS SCREENING BILATERAL DIGITAL W CAD W MAE BILATERAL DIGITAL SCREENING MAMMOGRAM 3D/2D WITH CAD WITH MEDIOLATERAL OBLIQUE CRANIOCAUDAL: 04/16/2022 The study was acquired using digital technology and interpreted from soft copy. Current study was also evaluated with ICAD version 7.2. 2D digital mammographic views, as well as 3D digital tomosynthesis were performed in the CC and MLO projections. CLINICAL: Routine screening. Patient has no complaints. No personal history of cancer. No family history of breast cancer. Due to patient habitus, additional images were taken in an effort to obtain adequate breast tissue. Mamm pad used due to redness along bilateral inframmary folds. COMPARISONS: Comparison is made to exams dated: 03/17/2021, 10/13/2016, and 08/14/2008 [facility]. BREAST TISSUE:The tissue of both breasts is predominantly fatty. FINDINGS: There are benign calcifications in both breasts. No significant masses, calcifications, or other findings are seen in either breast. There has been no significant interval change. IMPRESSION: BI-RAD 2 BENIGN There is no mammographic evidence of malignancy. A 1 year screening mammogram is recommended. A letter will be sent to the patient with these results. The patient will be entered into a reminder system with a target due date of 1 year for her next screening exam. Electronically signed by: Glen graham/rick:04/16/2022 16:39:55 Clinical Laboratory Technician(s): RT Mary(R)(M), [facility] letter sent: Normal Exam Reading location: [facility] BI-RADS: 2 Benign Procedure Note Glen Hwang MD - 04/17/2022 - [facility] SCREENING BILATERAL DIGITAL W CAD W MAE BILATERAL DIGITAL SCREENING MAMMOGRAM 3D/2D WITH CAD WITH MEDIOLATERAL OBLIQUE CRANIOCAUDAL: 04/16/2022 The study was acquired using digital technology and interpreted from soft copy. Current study was also evaluated with ICAD version 7.2. 2D digital mammographic views, as well as 3D digital tomosynthesis were performed in the CC and MLO projections. CLINICAL: Routine screening. Patient has no complaints. No personal history of cancer. No family history of breast cancer. Due to patient habitus, additional images were taken in an effort to obtain adequate breast tissue. Mamm pad used due to redness along bilateral inframmary folds. COMPARISONS: Comparison is made to exams dated: 03/17/2021, 10/13/2016, and 08/14/2008 [facility]. BREAST TISSUE:The tissue of both breasts is predominantly fatty. FINDINGS: There are benign calcifications in both breasts. No significant masses, calcifications, or other findings are seen in either breast. There has been no significant interval change. IMPRESSION: BI-RAD 2 BENIGN There is no mammographic evidence of malignancy. A 1 year screening mammogram is recommended. A letter will be sent to the patient with these results. The patient will be entered into a reminder system with a target due date of 1 year for her next screening exam. Electronically signed by: Glen graham/rick:04/16/2022 16:39:55 Clinical Laboratory Technician(s): RT Mary(R)(M), [facility] letter sent: Normal Exam Reading location: [facility] BI-RADS: 2 Benign Kimberlee Mcneil PAC IMG MAMMO ORDERABLES Fin al Result * [facility] BONE DENSITOMETRY AXIAL SKELETON (03/17/2021 10:10 AM DENTAL SURGEON) Anatomical Region Laterality Modality BODY N/A Other 03/17/2021 11:0 5 AM DENTAL SURGEON Impressions 03/17/2021 11:08 AM DENTAL SURGEON IMPRESSION: 1. Low bone mass REFERENCE: Bone mineral density: Normal (T-score above or = -1.0) Low bone mass (T-score between -1.0 and -2.5) replaces the previously used term osteopenia Osteoporosis (T-score = or below -2.5) Medical evaluation for secondary causes of low bone mineral density may be appropriate. FRAX is a World Health Organization validated fracture risk assessment tool that calculates a person's 10 year probability of a major osteoporosis related fracture and hip fracture. According to the National Osteoporosis Foundation guidelines, postmenopausal women and men age 50 or older with low bone mass and a 10 year probability of a major osteoporosis related fracture = or greater than 20% or a 10 year probability of a hip fracture = or greater than 3% should be considered for treatment. For further information, including treatment recommendations, please refer to the 2013 ISCD Official Positions (http://www.iscd.org) and the NOF's Clinician's Guide to Prevention and Treatment of Osteoporosis (http://www.nof.org/professionals/clinical-guidelines) Narrative 03/17/2021 11:08 AM DENTAL SURGEON EXAM DESCRIPTION: [facility] BONE DENSITOMETRY AXIAL SKELETON REASON FOR STUDY: 70 year old F with given history of screening. Bank Consultant/Model: [employer] (S/N [id number]) CLINICAL INFORMATION: Current height: 67 inches Weight: 195 pounds Risk factors: None COMPARISON: 09/21/2017 FINDINGS: AP LUMBAR SPINE L1-L4: Total BMD is 1.055 g/cm2 T-score is -1.1 This is increased by 0.7% when compared to the prior study LEFT HIP: Total BMD is 0.781 g/cm2 T-score is -1.8 This is decreased by 1.4% when compared to the prior study Femoral neck BMD is 0.760 g/cm2 T-score is -2.0 Fracture risk assessment (FRAX): 10 year risk for a major osteoporotic fracture is 11.3 % 10 year risk for a hip fracture is 2 % The FRAX tool has not been validated in patients currently or previously treated with pharmacotherapy for osteoporosis. In such patients, clinical judgement must be exercised in interpreting FRAX scores as the fracture risk may be overestimated. THIS IS AN ELECTRONICALLY VERIFIED FINAL REPORT 03/17/2021 11:05 AM - Electronically signed by Marc Rider M.D. SWAPNIL: SWAPNIL Report ID: [id number] Reading Location: [place] [address] Procedure Note Marc Rider MD - 03/17/2021 EXAM DESCRIPTION: [facility] BONE DENSITOMETRY AXIAL SKELETON REASON FOR STUDY: 70 year old F with given history of screening. Bank Consultant/Model: [employer] (S/N [id number]) CLINICAL INFORMATION: Current height: 67 inches Weight: 195 pounds Risk factors: None COMPARISON: 09/21/2017 FINDINGS: AP LUMBAR SPINE L1-L4: Total BMD is 1.055 g/cm2 T-score is -1.1 This is increased by 0.7% when compared to the prior study LEFT HIP: Total BMD is 0.781 g/cm2 T-score is -1.8 This is decreased by 1.4% when compared to the prior study Femoral neck BMD is 0.760 g/cm2 T-score is -2.0 Fracture risk assessment (FRAX): 10 year risk for a major osteoporotic fracture is 11.3 % 10 year risk for a hip fracture is 2 % The FRAX tool has not been validated in patients currently or previously treated with pharmacotherapy for osteoporosis. In such patients, clinical judgement must be exercised in interpreting FRAX scores as the fracture risk may be overestimated. THIS IS AN ELECTRONICALLY VERIFIED FINAL REPORT 03/17/2021 11:05 AM - Electronically signed by Marc Rider M.D. SWAPNIL: SWAPNIL Report ID: [id number] Reading Location: [id number] IMPRESSION: 1. Low bone mass REFERENCE: Bone mineral density: Normal (T-score above or = -1.0) Low bone mass (T-score between -1.0 and -2.5) replaces the previously used term osteopenia Osteoporosis (T-score = or below -2.5) Medical evaluation for secondary causes of low bone mineral density may be appropriate. FRAX is a World Health Organization validated fracture risk assessment tool that calculates a person's 10 year probability of a major osteoporosis related fracture and hip fracture. According to the National Osteoporosis Foundation guidelines, postmenopausal women and men age 50 or older with low bone mass and a 10 year probability of a major osteoporosis related fracture = or greater than 20% or a 10 year probability of a hip fracture = or greater than 3% should be considered for treatment. For further information, including treatment recommendations, please refer to the 2013 ISCD Official Positions (http://www.iscd.org) and the NOF's Clinician's Guide to Prevention and Treatment of Osteoporosis (http://www.nof.org/professionals/clinical-guidelines) Kimberlee Mcneil PAC IMG DEXA ORDERABLES Janeth bhatti Result from Last 3 Months or Most Recently Relevant to Health Maintenance Insurance [place] [address] [place] [address] [facility] Care Teams Transitional Studies Instructor Relationship Specialty Start Date End Date Kimberlee Mcneil PAC [address] [place] [address] PCP - General Physician Cfd Engineer 03/18/17 Bill Garrido MD [address] [address] Consulting Physician Otolaryngology 01/03/25
--- OUTSIDE RECORDS SUMMARY | 2025-02-16 08:53 | XMS_ITS | Encounter Summary ---
Author Organization [facility] Health Address [address] [place] [address] Care Team Providers Care Sketcher Name Role Phone Kimberlee Mcneil Primary Care Provider [phone] Reason for Visit * Reason Onset Date Comments Question 03/26/2023 Encounter Details Date Type Department Care Team (Late st Contact Info) Description 03/26/2023 Telephone [facility] HOUSEKEEPING [address] [facility] [address] [place] [address] José Miguel Grewal MD [address] [facility] [address] [place] [address] Question Social History Tobacco Use Types Packs/Day Years Used Date Smoking Tobacco: Former Cigarettes Alcohol Use Standard Drinks/Week Comments Never 0 (1 standard drink = 0.6 oz pur e alcohol) PHQ-2 Answer Date Recorded Patient Health Questionnaire-2 Score 0 03/24/2023 Comments No Sex and Gender Information Value Date Recorded Sex Assigned at Not on file Legal Sex Female 12:02 PM CDT Gender Identity Not on file Sexual Orientation Not on file documented as of this encounter Miscellaneous Notes * Telephone Encounter - Susan Orosco - 03/26/2023 1:59 PM CST [facility] ( Dr Noriega office ) Calling To say that pt labs are in the system ( [facility]) CB# [phone] TESTER documented in this encounter Plan of Treatment Upcoming Encounters Date Type Department Care Team (Late st Contact Info) Description 03/15/2025 12:30 PM WARE TESTER Appointment [facility] [address] [place], [place] [id number] José Miguel Grewal MD [address] [place] [address] 04/11/2025 2:30 PM WARE TESTER Office Visit [facility] - MANAGER HOUSEKEEPING [address] [place] [address] José Miguel Grewal MD [address] [facility] [address] [place] [address] documented as of this encounter Visit Diagnoses Not on filedocumented in this encounter Care Teams Sketcher Relationship Specialty Start Date End Date Kimberlee Mcneil PA 2 [place] [address] PCP - General Physician Construction Trades Teacher 03/10/23 documented as of this encounter
--- OUTSIDE RECORDS SUMMARY | 2025-02-16 08:53 | XMS_ITS | Encounter Summary ---
Author Organization [facility] Address [address] [place] [address] Care Team Providers Care K9 Handler Name Role Phone Kimberlee Mcneil Primary Care Provider [phone] Encounter Details Date Type Department Care Team (Late st Contact Info) Description 04/14/2023 Telephone [facility] [address] [place] [address] Yakelin Neumann RN Social History Tobacco Use Types Packs/Day Years Used Date Smoking Tobacco: Former Cigarettes Alcohol Use Standard Drinks/Week Comments Never 0 (1 standard drink = 0.6 oz pur e alcohol) PHQ-2 Answer Date Recorded Patient Health Questionnaire-2 Score 0 04/16/2023 Comments No Sex and Gender Information Value Date Recorded Sex Assigned at Not on file Legal Sex Female 12:02 PM CDT Gender Identity Not on file Sexual Orientation Not on file documented as of this encounter Miscellaneous Notes * Telephone Encounter - Latesha Levi RN - 04/14/2023 2:06 PM CST [facility] Cancer Care Telephone Follow-up Any difficulties getting around at home? No Any issues with ADL's or ambulation? No Do you have help at home? Yes - Have you filled all of your prescriptions? Yes - nausea med Any concerns with your appetite or fluid intake? Yes - loss of appetite Are you noticing any changes in urination? No Are you having any of the following symptoms: ? Pain: No ? Fever: No ? Fatigue: Yes - extreme fatigue ? Diarrhea: No constipation ? Nausea: No ? Vomiting: No ? Dizziness: No ? New or worsening cough: No ? New or worsening shortness of breath: No ? Sores in your mouth: Yes - no sores but burning in throat when consuming ketchup ? Numbness or Tingling to hands or feet: No Any barriers to keeping next appointment as scheduled? No After hours process reviewed? Yes - . Notify your physician immediately if any of the following symptoms occur Temperature more than or equal to 100.5 Diarrhea for more than 24 hrs Nausea or vomiting not relieved after taking nausea medication No bowel movement for more than 48 hrs After hour [facility] number Latesha Levi, RN PULLER documented in this encounter Plan of Treatment Upcoming Encounters Date Type Department Care Team (Late st Contact Info) Description 03/15/2025 12:30 PM LUNG PULLER Appointment [facility] [address] [facility] [address] [place], [place] [id number] José Miguel Grewal MD [address] [facility] [address] [place] [address] 04/11/2025 2:30 PM LUNG PULLER Office Visit [facility] - SQUIRT MACHINE OPERATOR [address] [facility] [address] [place] [address] José Miguel Grewal MD [address] [facility] [address] [place] [address] documented as of this encounter Visit Diagnoses Not on filedocumented in this encounter Care Teams K9 Handler Relationship Specialty Start Date End Date Kimberlee Mcneil PA 2 [place] [address] PCP - General Physician Pastry Wrapper 03/10/23 documented as of this encounter
--- OUTSIDE RECORDS SUMMARY | 2025-02-16 08:53 | XMS_ITS ---
Author Organization [facility] Address [address] [facility] [place] [address] Care Team Providers Care Senior Analyst Market Intelligence Name Role Phone Kimberlee Mcneil Primary Care Provider [phone] Active Problems Problem Noted Date Diagnosed Date Hypokalemia 04/24/2023 Cervical cancer 03/19/2023 Cancer Staging:Clinical stage from 03/22/2023:FIGO Stage IIB(cT2b, cNX, cM0) - Signed by Tae Hernández MD on 03/22/2023 Sensorineural hearing loss (SNHL) of both ears 0 11/17/2021 04/28/2023 Overview (04/28/2023): Last Assessment & Plan: Will obtain work up for Dizziness at [place] Continue potassium Call if no improvement in Dizziness for follow up with either myself or Physical therapy Generalized anxiety disorder 10/16/2020 Osteoporosis 03/16/2015 04/28/2023 Essential hypertension 03/16/2015 Current Treatment and Therapy Plans CERVICAL (CISPLATIN) Q7 DAYS W/ RT* Plan Start Date:04/04/2023 Plan Provider:José Miguel Grewal MD Linked Problems Malignant neoplasm of exocer vix (HCC) Treatment Medications CISplatin (Platinol) in 1000 mL infusion MAGNESIUM SULFATE THERAPY PLAN* Plan Start Date:05/03/2023 Plan Provider:José Miguel Grewal MD Linked Problems Malignant neoplasm of exocer vix (HCC) Treatment Medications No medications scheduled. PORT MAINTENANCE THERAPY PLAN* Plan Start Date:12/13/2024 Plan Provider:José Miguel Grewal MD Linked Problems Malignant neoplasm of endoce rvix (HCC) Treatment Medications No medications scheduled. Other Current Plans POTASSIUM CHLORIDE THERAPY PLAN* Plan Start Date:05/03/2023 Plan Provider:José Miguel Grewal MD Linked Problems Hypokalemia Treatment Medications No medications scheduled. Past Treatment and Therapy Plans THERAPY PLAN Plan Name Start Date Discontinue Date Treatment Medications Discontinue Reason Plan Provider PORT MAINTENANCE THERAPY PLAN 04/09/2023 12/12/2024 No medications scheduled. Therapy Complete José Miguel Grewal MD Radiation Treatments * Course C1 - Pelvis 04/12/2023 - 05/14/2023 Treatment Period Energy Fraction Dose Fractions Total Dose Plans Planned Pelvis 04/12/2023 - 05/14/2023 25 / 2 5 4,500 cGy Reference Points Delivered
--- OUTSIDE RECORDS SUMMARY | 2025-02-16 08:53 | XMS_ITS | Encounter Summary ---
Author Organization [facility] Address [address] [place] [address] Phone Care Team Providers Care Technical Sales Associate Name Role Phone Kimberlee Mcneil Primary Care Provider + Bill Garrido MD Unavailable Reason for Visit * Reason Comments Medication Refill Encounter Details Date Type Department Care Team (Late st Contact Info) Description 10/15/2021 Refill [facility] [address] [place] [address] Kimberlee Mcneil PAC [address] [place] [address] Medication Refill Social History Tobacco Use Types Packs/Day Years Used Date Smoking Tobacco: Former Cigarettes 1 30 Smokeless Tobacco: Never Alcohol Use Standard Drinks/Week Comments Not Currently 0 (1 standard drink = 0.6 oz pure alcohol) Hasn't drank since of daughter 44 years ago. Personal Choice. PHQ-2 Answer Date Recorded Total Score - Questions 1-9 0 07/0 07/2021 Education Answer Date Recorded What is the [...] suspected to have Coronavirus/COVID-19? No / Unsure 10/17/2021 9:53 AM CDT documented as of this encounter Miscellaneous Notes * Telephone Encounter - Betsy Yepez RN - 10/16/2021 9:03 AM CDT Name from pharmacy: ESCITALOPRAM 5 MG TABLET Will file in chart as: Escitalopram Oxalate 5 MG Tablet The original prescription was discontinued on 09/03/2021 by Kimberlee Mcneil, PAC documented in this encounter Plan of Treatment Upcoming Encounters Date Type Department Care Team (Late st Contact Info) Description 02/28/2025 12:45 PM WELDING MACHINE ASSEMBLER [facility] [address] [place] [address] Deepika Gifford, SUBSTATION MAINTENANCE TECHNICIAN [address] [place] [address] Discharge Disposition: Discharged to home or Selfcare 03/06/2025 9:20 AM WELDING MACHINE ASSEMBLER [facility]ization [facility] [place] [address] 03/12/2025 1:00 PM WELDING MACHINE ASSEMBLER Telemedicine [facility] 1 [place] [address] Deepika Gifford, SUBSTATION MAINTENANCE TECHNICIAN [address] [place] [address] Discharge Disposition: Discharged to home or Selfcare 03/19/2025 10:40 AM WELDING MACHINE ASSEMBLER Office Visit [facility] #2 [place] [address] Kimberlee Mcneil PAC [address] [place] [address] documented as of this encounter Goals Goal Patient Goal Type Associated Problems Recent Progress Patient-Stated? Author ANXIETY Anxiety On track( 025 1:38 PM WELDING MACHINE ASSEMBLER) No Deepika Gifford SUBSTATION MAINTENANCE TECHNICIAN Note: Goal: Mariela to be able to report decreased anxiety/panic attacks/ability to cope with stressors, to an acceptable level, within the next three month. Goal Reviewed with: patient Readiness to change: Ready to change Department associated with goal: [facility] Steps to achieve goal: Mariela counseled on stress management, during her 45 min individual therapy sessions, 1-2 times per month [place] counseled on recognizing and challenging negative and unrealistic thoughts, during her 45 min individual therapy sessions, 1-2 times per month I would like to feel calm. I would like ways to cope with stress. within the next three months Behavioral Health On track( 025 1:38 PM WELDING MACHINE ASSEMBLER) Yes Khalida Flores LCSW Note: Goal Reviewed with: patient Readiness to change: Ready to change Department associated with goal: [facility] Steps to achieve [...] documented as of this encounter Visit Diagnoses Diagnosis Anxiety Anxiety state, unspecified documented in this encounter Additional Health Concerns Assessment Noted Time PHQ-9 Depression Total Score: 0 08/31/19 21 10:00 AM CDT documented as of this encounter Care Teams Technical Sales Associate Relationship Specialty Start Date End Date Kimberlee Mcneil PAC [address] [place] [address] PCP - General Physician Superintendent Circus 03/18/17 Bill Garrido MD [address]2 [facility] [address] [id number] Consulting Physician Otolaryngology 01/03/25 documented as of this encounter
--- OUTSIDE RECORDS SUMMARY | 2025-02-16 08:53 | XMS_ITS | Encounter Summary ---
Author Organization [facility] Address [address] [place] [address] Phone Care Team Providers Care Construction Economist Name Role Phone Kimberlee Mcneil Primary Care Provider + Bill Garrido MD Unavailable [phone] Encounter Details Date Type Department Care Team (Late st Contact Info) Description 10/18/2023 Behavioral Health [facility] [address] [place] [address] Deepika Gifford, [facility] [address] [place] [address] Social History Tobacco Use Types Packs/Day Years Used Date Smoking Tobacco: Former Cigarettes 1 30 Smokeless Tobacco: Never Alcohol Use Standard Drinks/Week Comments Not Currently 0 (1 standard drink = 0.6 oz pure alcohol) Hasn't drank since of daughter 44 years ago. Personal Choice. [facility] Utilities Answer Date Recorded In the past 12 months has [employer], gas, oil, or water company threatened to [...] often do you attend chur ch or druze services? More than 4 times per year 07/06/2023 Do you belong to any clubs o r organizations such as mosque groups, unions, fraternal or athletic groups, or [...] Total Score - Questions 1-9 0 07/2021 [facility] Occupat ional [facility] - Occupational Stress [...] place to sleep or slept in a snf (including now)? No 07/06/2023 Education Answer Date [...] documented as of this encounter Functional Status documented as of this encounter Mental Status * Question Answer Entry Date Author BP 144/82 10/20/2023 10:32 AM CDT Kimberlee White, PAC Temp 97.6 10/20/2023 10:32 AM CDT Sammi Arizmendi CMA Pulse 82 10/20/2023 10:32 AM CDT Sammi Arizmendi MANIFEST CLERK SpO2 100 10/20/2023 10:32 AM CDT Sammi Arizmendi CMA documented in this encounter Plan of Treatment Upcoming Encounters Date Type Department Care Team (Late st Contact Info) Description 02/28/2025 12:45 PM NET MVC DEVELOPER Telemedicine [facility] 1 [place] [phone] Deepika Gifford, CANE LOADER [address] [place] [address] Discharge Disposition: Discharged to home or Selfcare 03/06/2025 9:20 AM NET MVC DEVELOPER Immunization [facility] [place] [address] [place] [address] 03/12/2025 1:00 PM NET MVC DEVELOPER Telemedicine [facility] 1 [place] [address] Deepika Gifford, CANE LOADER [address] [place] [address] Discharge Disposition: Discharged to home or Selfcare 03/19/2025 10:40 AM NET MVC DEVELOPER Office Visit [facility] [address] [place] [address] Kimberlee Mcneil, PAC [address] [place] [address] documented as of this encounter Goals Goal Patient Goal Type Associated Problems Recent Progress Patient-Stated? Author ANXIETY Anxiety On track( 025 1:38 PM NET MVC DEVELOPER) No Deepika Gifford, CANE LOADER Note: Goal: Mariela to be able to report decreased anxiety/panic attacks/ability to cope with stressors, to an acceptable level, within the next three month. Goal Reviewed with: patient Readiness to change: Ready to change Department associated with goal: [facility] Steps to achieve goal: [...] Behavioral Health On track( 025 1:38 PM NET MVC DEVELOPER) Yes Khalida Flores, CANE LOADER Note: Goal Reviewed with: patient Readiness to change: Ready to change Department associated with goal: [facility] Steps to achieve goal: [...] documented as of this encounter Care Teams Construction Economist Relationship Specialty Start Date End Date Kimberlee Mcneil PAC [address] [place] [address] PCP - General Physician Production Leader 03/18/17 Bill Garrido MD #2 [facility] [place] [address] [address] Consulting Physician Otolaryngology 01/03/25 documented as of this encounter
--- OUTSIDE RECORDS SUMMARY | 2025-02-16 08:54 | XMS_ITS | Encounter Summary ---
Author Organization [facility] Address [address] [place] [address] Phone Care Team Providers Care Carburetor Mechanic Name Role Phone Kimberlee Mcneil Primary Care Provider + Bill Garrido MD Unavailable [phone] Reason for Visit * Reason Comments Medication Refill Encounter Details Date Type Department Care Team (Late st Contact Info) Description 07/31/2020 Refill [facility] [address] [place] [address] Kimberlee Mcneil, PAC [address] [place] [address] Medication Refill Social History Tobacco Use Types Packs/Day Years Used Date Smoking Tobacco: Former Cigarettes Smokeless Tobacco: Never Alcohol Use Standard Drinks/Week Comments Yes 0 (1 standard drink = 0.6 oz pur e alcohol) PHQ-2 Answer Date Recorded Total Score - Questions 1-9 0 09/2019 Education Answer Date Recorded What is the highest level of school you have completed or the highest degree you have received? Bachelor's degree (e.g., BA, AB, BS) 07/22/2020 Comments No Sex and Gender Information Value Date Recorded Sex Assigned at Not on file Legal Sex Female 9:09 PM CDT Gender Identity Not on file Sexual Orientation Not on file COVID-19 Exposure Response Date Recorded In the last month, have you been in contact with someone who was confirmed or suspected to have Coronavirus / COVID-19? No / Unsure 07/23/2020 9:53 AM CDT documented as of this encounter Miscellaneous Notes * Telephone Encounter - Gemma Dale, RN - 07/31/2020 12:07 PM CDT Medication failed the protocol, provider to review and approve the medication order if appropriate. Last OV 07/23/20, F/U 01/20/21, Last Rx 11/01/19 No Potassium and No GFR result in past 12 months Kecia Requested Prescriptions Pending Prescriptions Disp Refills losartan (COZAAR) 100 MG Tablet [Pharmacy Med Name: LOSARTAN POTASSIUM 100 MG TAB] 30 Tablet 8 Sig: TAKE 1 TABLET BY MOUTH EVERY DAY ARB Protocol Failed - 07/31/2020 7:30 AM Failed - Serum potassium on record in past 12 months No results found for: POTASSIUM, POCTK Failed - GFR on record in past 12 months Passed - BP on record in the past year Clinician-entered: BP Readings from Last 3 Encounters: 07/23/20 122/82 02/26/20 118/72 08/07/19 132/78 Patient-entered: No data recorded Passed - Visit with relevant provider in past year or upcoming 90 days Recent Visits Date Type Provider Dept 07/23/20 Office Visit Kimberlee Mcneil PAC [facility] 02/26/20 Office Visit Kimberlee Mcneil PAC [facility] 08/07/19 Office Visit Kimberlee Mcneil PAC [facility] Showing recent visits within past 365 days and meeting all other requirements Future Appointments No visits were found meeting these conditions. Showing future appointments within next 90 days and meeting all other requirements documented in this encounter Plan of Treatment Upcoming Encounters Date Type Department Care Team (Dc st Contact Info) Description 02/28/2025 12:45 PM PRECISION INSPECTOR Telemedicine [facility] [address] [place] [address] Deepika Gifford, VIRTUAL RECRUITER [address] [place] [address] Discharge Disposition: Discharged to home or Selfcare 03/06/2025 9:20 AM PRECISION INSPECTOR Immunization [facility] #2 [place] [address] 03/12/2025 1:00 PM PRECISION INSPECTOR Telemedicine [facility] 1 [place] [address] Deepika Gifford, VIRTUAL RECRUITER [address] [place] [address] Discharge Disposition: Discharged to home or Selfcare 03/19/2025 10:40 AM PRECISION INSPECTOR Office Visit [facility] [address] [place] [address] Kimberlee Mcneil PAC [address] [place] [address] documented as of this encounter Visit Diagnoses Not on filedocumented in this encounter Additional Health Concerns Infection Onset Date Last Indicated Resolved Time COVID - 19 Confirmed 09/23/2021 09/23/2021 022 12:16 AM CDT Assessment Noted Time PHQ-9 Depression Total Score: 0 08/07/19 20 8:42 AM CDT documented as of this encounter Care Teams Carburetor Mechanic Relationship Specialty Start Date End Date Kimberlee Mcneil PAC [address] [place] [address] PCP - General Physician Physical Sciences Instructor 03/18/17 Bill Garrido MD #[address] [address] Consulting Physician Otolaryngology 01/03/25 documented as of this encounter
--- OUTSIDE RECORDS SUMMARY | 2025-02-16 08:54 | XMS_ITS | Encounter Summary ---
Author Organization [facility] Address [address] [place] [address] Phone Care Team Providers Care Tripe Washer Name Role Phone Kimberlee Mcneil Primary Care Provider + Bill Garrido MD Unavailable [phone] Encounter Details Date Type Department Care Team (Late st Contact Info) Description 05/12/2023 Behavioral Health [facility] [address] [place] [address] Deepika Gifford, [facility] [address] [place] [address] Social History Tobacco Use Types Packs/Day Years Used Date Smoking Tobacco: Former Cigarettes 1 30 Smokeless Tobacco: Never Alcohol Use Standard Drinks/Week Comments Not Currently 0 (1 standard drink = 0.6 oz pure alcohol) Hasn't drank since of daughter 44 years ago. Personal Choice. PHQ-2 Answer Date Recorded Total Score - Questions 1-9 0 0 07/2021 Education Answer Date Recorded What is [...] st Contact Info) Description 02/28/2025 12:45 PM MACHINE OPERATOR SLITTER TECHNICIAN Telemedicine [facility] [address] [place] [address] Deepika Gifford, AUTOMATION QA TESTER [address] [place] [address] Discharge Disposition: Discharged to home or Selfcare 03/06/2025 9:20 AM MACHINE OPERATOR SLITTER TECHNICIAN Immunization [facility] #2 [place] [address] 03/12/2025 1:00 PM MACHINE OPERATOR SLITTER TECHNICIAN Telemedicine [facility] [address] [place] [address] Deepika Gifford, AUTOMATION QA TESTER [address] [place] [address] Discharge Disposition: Discharged to home or Selfcare 03/19/2025 10:40 AM MACHINE OPERATOR SLITTER TECHNICIAN Office Visit [facility] #2 [place] [address] Kimberlee Mcneil, [facility] [address] [place] [address] documented as of this encounter Goals Goal Patient Goal Type Associated Problems Recent Progress Patient-Stated? Author ANXIETY Anxiety On track( 025 1:38 PM MACHINE OPERATOR SLITTER TECHNICIAN) No Deepika Gifford, AUTOMATION QA TESTER Note: Goal: Gale to be able to report decreased anxiety/panic attacks/ability to cope with stressors, to an acceptable level, within the next three month. Goal Reviewed with: patient Readiness to change: Ready to change Department associated with goal: [facility] Steps to achieve goal: Mariela [...] Behavioral Health On track( 025 1:38 PM MACHINE OPERATOR SLITTER TECHNICIAN) Yes Khalida Flores, AUTOMATION QA TESTER Note: Goal Reviewed with: patient Readiness to change: Ready to change Department associated with goal: [facility] Steps to [...] documented as of this encounter Care Teams Tripe Washer Relationship Specialty Start Date End Date Kimberlee Mcneil PAC [address]2 [facility] [place] [place] [address] PCP - General Physician Tool Engine Lathe Set Up Operator 03/18/17 Bill Garrido MD #2 [facility] [place] [address] [address] Consulting Physician Otolaryngology 01/03/25 documented as of this encounter
--- OUTSIDE RECORDS SUMMARY | 2025-02-16 08:54 | XMS_ITS | Encounter Summary ---
Author Organization [facility] Address [address] [place] [address] Phone Care Team Providers Care Grinder Gear Name Role Phone Kimberlee Mcneil Primary Care Provider + Bill Garrido MD Unavailable [phone] Reason for Visit * Reason Comments Medication Refill Encounter Details Date Type Department Care Team (Late st Contact Info) Description 06/02/2023 [facility]ill [facility] [place] [address]2 [place] [address] Karmen Andersen APRN, KITCHEN HAND [address] [address] Medication Refill Social History Tobacco Use Types Packs/Day Years Used Date Smoking Tobacco: Former Cigarettes 1 30 Smokeless Tobacco: Never Alcohol Use Standard Drinks/Week Comments Not Currently 0 (1 standard drink = 0.6 oz pure alcohol) Hasn't drank since of daughter 44 years ago. Personal Choice. PHQ-2 Answer Date Recorded Total Score - Questions 1-9 0 07/2021 Education Answer Date Recorded What [...] Telephone Encounter - Betsy Yepez RN - 06/03/2023 9:55 AM CDT Medication(s) refilled and signed per [facility] Chronic Medication Refill Standing Order for Pediatricand Adult Patients. Requested Prescriptions Pending Prescriptions Disp Refills atenolol (TENORMIN) 25 MG Tablet [Pharmacy Med Name: ATENOLOL 25 MG TABLET] 90 Tablet 2 Sig: TAKE 1 TABLET BY MOUTH EVERY DAY Atenolol Protocol Passed - 06/02/2023 1:04 PM Passed - BP on record in the past year Clinician-entered: BP Readings from Last 3 Encounters: 03/08/23 138/80 12/18/22 128/80 09/25/22 128/64 Patient-entered: No data recorded Passed - Visit with relevant provider in past 12 months or upcoming 90 days Recent Visits Date Type Provider Dept 03/08/23 Office Visit Kimberlee Mcneil PAC [facility] 12/18/22 Office Visit Kimberlee Mcneil PAC [facility] 09/03/22 Office Visit Kimberlee Mcneil PAC [facility] Showing recent visits within past 365 days and meeting all other requirements Future Appointments Date Type Provider Dept 07/06/23 Appointment Kimberlee Mcneil PAC [facility] Showing future appointments within next 90 days and meeting all other requirements documented in this encounter Plan of Treatment Upcoming Encounters Date Type Department Care Team (Late st Contact Info) Description 02/28/2025 12:45 PM HEAD LINEMAN Telemedicine [facility] [address] [place] [address] Deepika Gifford, LIBRARY MEDIA SPECIALIST [address]1 [place] [address] Discharge Disposition: Discharged to home or Selfcare 03/06/2025 9:20 AM HEAD LINEMAN Immunization [facility] [place] [address]2 [place] [address] 03/12/2025 1:00 PM HEAD LINEMAN Telemedicine [facility] Services 1 [place] [address] Deepika Gifford, LIBRARY MEDIA SPECIALIST [address] [place] [address] Discharge Disposition: Discharged to home or Selfcare 03/19/2025 10:40 AM HEAD LINEMAN Office Visit [facility] [place] [address] [place] [address] Kimberlee Mcneil, [facility] [address] [place] [address] documented as of this encounter Goals Goal Patient Goal Type Associated Problems Recent Progress Patient-Stated? Author ANXIETY Anxiety On track( 025 1:38 PM HEAD LINEMAN) No Deepika Gifford LCSW Note: Goal: Mariela to be able to [...] Behavioral Health On track( 025 1:38 PM HEAD LINEMAN) Yes Khalida Flores LCSW Note: Goal Reviewed with: patient Readiness to change: Ready to change Department associated with goal[facility] Steps to achieve goal: [...] documented as of this encounter Care Teams Grinder Gear Relationship Specialty Start Date End Date Kimberlee Mcneil PAC [address] [place] [address] PCP - General Physician House Detective 03/18/17 Bill Garrido MD [address] [place] [address] [address] Consulting Physician Otolaryngology 01/03/25 documented as of this encounter
--- OUTSIDE RECORDS SUMMARY | 2025-02-16 08:54 | XMS_ITS | Encounter Summary ---
Author Organization [facility] Address [address] [place] [address] Phone Care Team Providers Care Parts Expediter Name Role Phone Kimberlee Mcneil Primary Care Provider + Bill Garrido MD Unavailable [phone] Encounter Details Date Type Department Care Team (Late st Contact Info) Description 08/02/2023 Behavioral Health [facility] [address] [place] [address] Deepika Gifford, [facility] [address]1 [place] [address] Social History Tobacco Use Types Packs/Day Years Used Date Smoking Tobacco: Former Cigarettes 1 30 Smokeless Tobacco: Never Alcohol Use Standard Drinks/Week Comments Not Currently 0 (1 standard drink = 0.6 oz pure alcohol) Hasn't drank since of daughter 44 years ago. Personal Choice. [facility] Utilities Answer Date Recorded In the past 12 months has [employer], gas, oil, or water company threatened to [...] often do you attend chur ch or yarsani services? More than 4 times per year 07/06/2023 Do you belong to any clubs o r organizations such as sikhism groups, unions, fraternal or athletic groups, or [...] Total Score - Questions 1-9 0 07/2021 [facility] of Occupat ional Health - Occupational Stress [...] place to sleep or slept in a halfway (including now)? No 07/06/2023 Education Answer Date [...] st Contact Info) Description 02/28/2025 12:45 PM APPEALS ANALYST Telemedicine [facility] 1 [place] [address] Deepika Gifford, EVP AND CHIEF OPERATING OFFICER [address] [place] [address] Discharge Disposition: Discharged to home or Selfcare 03/06/2025 9:20 AM APPEALS ANALYST Immunization [facility] - [place] [address] [place] [address] 03/12/2025 1:00 PM APPEALS ANALYST Telemedicine [facility] 1 [place] [address] Deepika Gifford, EVP AND CHIEF OPERATING OFFICER [address] [place] [address] Discharge Disposition: Discharged to home or Selfcare 03/19/2025 10:40 AM APPEALS ANALYST Office Visit [facility] #2 [place] [address] Alizescoobyyasmine Kimberlee Mcdonough, PAC [address] [place] [address] documented as of this encounter Goals Goal Patient Goal Type Associated Problems Recent Progress Patient-Stated? Author ANXIETY Anxiety On track( 025 1:38 PM APPEALS ANALYST) No Deepika Gifford, EVP AND CHIEF OPERATING OFFICER Note: Goal: Mariela to be able to report decreased anxiety/panic attacks/ability to cope with stressors, to an acceptable level, within the next three month. Goal Reviewed with: patient Readiness to change: Ready to change Department associated with goal: [facility] Steps to achieve goal: [...] Behavioral Health On track( 025 1:38 PM APPEALS ANALYST) Yes Khalida Flores LCSW Note: Goal Reviewed with: patient Readiness to change: Ready to change Department associated with goal: [facility] Steps to achieve goal: [...] documented as of this encounter Care Teams Parts Expediter Relationship Specialty Start Date End Date Kimberlee Mcneil PAC [address] [place] [address] PCP - General Physician Environmental Monitoring Specialist 03/18/17 Bill Garrido MD [address] [place] [address] [address] Consulting Physician Otolaryngology 01/03/25 documented as of this encounter
--- OUTSIDE RECORDS SUMMARY | 2025-02-16 08:54 | XMS_ITS | Encounter Summary ---
Author Organization [facility] Address [address] [place] [address] Phone Care Team Providers Care Technical Assistance Consultant Name Role Phone Kimberlee Mcneil Primary Care Provider + Bill Garrido MD Unavailable Encounter Details Date Type Department Care Team (Late st Contact Info) Description 12/24/2023 Behavioral Health Patient Survey [facility] Services 1 [place] [address] Deepika Gifford, [facility] [address]1 [place] [address] Social History Tobacco Use Types Packs/Day Years Used Date Smoking Tobacco: Former Cigarettes 1 30 Smokeless Tobacco: Never Alcohol Use Standard Drinks/Week Comments Not Currently 0 (1 standard drink = 0.6 oz pure alcohol) Hasn't drank since of daughter 44 years ago. Personal Choice. [facility] Utilities Answer Date Recorded In the past 12 months has [employer], gas, oil, or water company threatened to [...] often do you attend chur ch or roman catholic services? More than 4 times per year 07/06/2023 Do you belong to any clubs o r organizations such as caodaism groups, unions, fraternal or athletic groups, or [...] Total Score - Questions 1-9 0 07/2021 [facility] of Occupat ional Health - [...] place to sleep or slept in a correction (including now)? No 07/06/2023 Education Answer Date [...] st Contact Info) Description 02/28/2025 12:45 PM DIE CUTTER DIAMOND Telemedicine [facility] 1 [place] [address] Deepika Gifford, SOFTWARE LICENSING SPECIALIST [address] [place] [address] Discharge Disposition: Discharged to home or Selfcare 03/06/2025 9:20 AM DIE CUTTER DIAMOND Immunization [facility] - [place] [address] [place] [address] 03/12/2025 1:00 PM DIE CUTTER DIAMOND Telemedicine [facility] 1 [place] [address] Deepika Gifford, SOFTWARE LICENSING SPECIALIST [address] [place] [address] Discharge Disposition: Discharged to home or Selfcare 03/19/2025 10:40 AM DIE CUTTER DIAMOND Office Visit [facility] - [facility] [place] [address]2 [place] [address] Alizescoobyyasmine Kimberlee Mcdonough, PAC [address] [place] [address] documented as of this encounter Goals Goal Patient Goal Type Associated Problems Recent Progress Patient-Stated? Author ANXIETY Anxiety On track( 025 1:38 PM DIE CUTTER DIAMOND) No Deepika Gifford, SOFTWARE LICENSING SPECIALIST Note: Goal: Mariela to be able to report decreased anxiety/panic attacks/ability to cope with stressors, to an acceptable level, within the next three month. Goal Reviewed with: patient Readiness to change: Ready to change Department associated with goal: [facility] Steps to [...] Behavioral Health On track( 025 1:38 PM DIE CUTTER DIAMOND) Yes Khalida Flores LCSW Note: Goal Reviewed with: patient Readiness to change: Ready to change Department associated with goal: [facility] Steps to [...] as of this encounter Care Teams Technical Assistance Consultant Relationship Specialty Start Date End Date Kimberlee Mcneil PAC [address] [place] [address] PCP - General Physician Licensed Psychologist Manager 03/18/17 Bill Garrido MD [address] [place] [address] [address] Consulting Physician Otolaryngology 01/03/25 documented as of this encounter
--- OUTSIDE RECORDS SUMMARY | 2025-02-16 08:54 | XMS_ITS | Encounter Summary ---
Author Organization [facility] Address [address] [place] [address] Phone Care Team Providers Care Branch Service Representative Name Role Phone Kimberlee Mcneil Primary Care Provider + Bill Garrido MD Unavailable [phone] Encounter Details Date Type Department Care Team (Late st Contact Info) Description 06/23/2023 Behavioral Health [facility] 1 [place] [address] Deepika Gifford, [facility] #1 [place] [address] Social History Tobacco Use Types Packs/Day Years [...] st Contact Info) Description 02/28/2025 12:45 PM UTILITY WORKER PRODUCTION Telemedicine [facility] 1 [place] [address] Deepika Gifford, TACK PULLER MACHINE [address] [place] [address] Discharge Disposition: Discharged to home or Selfcare 03/06/2025 9:20 AM UTILITY WORKER PRODUCTION Immunization [facility] #2 [place] [address] 03/12/2025 1:00 PM UTILITY WORKER PRODUCTION Telemedicine [facility] Services 1 [place] [address] Deepika Gifford, TACK PULLER MACHINE [address] [place] [address] Discharge Disposition: Discharged to home or Selfcare 03/19/2025 10:40 AM UTILITY WORKER PRODUCTION Office Visit [facility] [address] [place] [address] Kimberlee Mcniel, [facility] #2 [place] [address] documented as of this encounter Goals Goal Patient Goal Type Associated Problems Recent Progress Patient-Stated? Author ANXIETY Anxiety On track( 025 1:38 PM UTILITY WORKER PRODUCTION) No Deepika Gifford, TACK PULLER MACHINE Note: Goal: [place] to be able to report decreased anxiety/panic attacks/ability to cope with stressors, to an acceptable level, within the next three month. Goal Reviewed with: patient Readiness to change: Ready to change Department associated with goal: [facility] Steps to achieve goal: Mariela [...] Behavioral Health On track( 025 1:38 PM UTILITY WORKER PRODUCTION) Yes Khalida Flores, TACK PULLER MACHINE Note: Goal Reviewed with: patient Readiness to change: Ready to change Department associated with goal: [facility] Steps to achieve [...] documented as of this encounter Care Teams Branch Service Representative Relationship Specialty Start Date End Date Kimberlee Mcneil PAC [address] [facility] [address] PCP - General Physician Cosmetic Account Coordinator 03/18/17 Bill Garrido MD [address]2 [facility] OF [facility] [place] [address] [address] Consulting Physician Otolaryngology 01/03/25 documented as of this encounter
--- OUTSIDE RECORDS SUMMARY | 2025-02-16 08:54 | XMS_ITS | Encounter Summary ---
Author Organization [facility] Address [address] [place] [address] Phone Care Team Providers Care Geopolitics Teacher Name Role Phone Kimberlee Mcneil Primary Care Provider + Bill Garrido MD Unavailable [phone] Encounter Details Date Type Department Care Team (Late st Contact Info) Description 09/11/2024 Behavioral Health Patient Survey [facility] 1 [place] [address] Deepika Gifford, [facility] #1 [place] [address] Social History Tobacco Use Types Packs/Day Years Used Date Smoking Tobacco: Former Cigarettes 1 30 Smokeless Tobacco: Never Alcohol Use Standard Drinks/Week Comments Not Currently 0 (1 standard drink = 0.6 oz pure alcohol) Hasn't drank since of daughter 44 years ago. Personal Choice. [facility] Utilities Answer Date Recorded In the past 12 months has [employer], gas, oil, or water company threatened to [...] often do you attend chur ch or confucianism services? More than 4 times per year 07/06/2023 Do you belong to any clubs o r organizations such as episcopalian groups, unions, fraternal or athletic groups, or [...] Total Score - Questions 1-9 0 04/02 [facility] of Occupat ional Health - Occupational Stress [...] place to sleep or slept in a assisted (including now)? No 07/06/2023 Education Answer Date [...] Contact Info) Description 02/28/2025 12:45 PM MANAGER FACILITY Telemedicine [facility] Behavior[facility] Health Services 1 [place] [address] Deepika Gifford, REWORKER [address] [place] [address] Discharge Disposition: Discharged to home or Selfcare 03/06/2025 9:20 AM MANAGER FACILITY Immunization [facility] - [place] #2 [place] [address] 03/12/2025 1:00 PM MANAGER FACILITY Telemedicine [facility] Behavioral Health Services 1 [place] [address] Deepika Gifford, REWORKER [address] [place] [address] Discharge Disposition: Discharged to home or Selfcare 03/19/2025 10:40 AM MANAGER FACILITY Office Visit [facility] [place] #2 [place] [address] Alizescoobyyasmine Kimberlee Mcdonough, PAC [address] [place] [address] documented as of this encounter Goals Goal Patient Goal Type Associated Problems Recent Progress Patient-Stated? Author ANXIETY Anxiety On track( 025 1:38 PM MANAGER FACILITY) No Deepika Gifford, REWORKER Note: Goal: Mariela to be able to report decreased anxiety/panic attacks/ability to cope with stressors, to an acceptable level, within the next three month. Goal Reviewed with: patient Readiness to change: Ready to change Department associated with goal: [facility] SERVICES Steps to [...] Health On track( 025 1:38 PM MANAGER FACILITY) Yes Khalida Flores LCSW Note: Goal Reviewed with: patient Readiness to change: Ready to change Department associated with goal: [facility] Steps to [...] Total Score: 0 04/24/19 25 11:08 AM MANAGER FACILITY documented as of this encounter Care Teams Geopolitics Teacher Relationship Specialty Start Date End Date Kimberlee Mcneil PAC [address] [place] [address] PCP - General Physician Civil Service Worker 03/18/17 Bill Garrido MD [address] [facility] [address] [address] Consulting Physician Otolaryngology 01/03/25 documented as of this encounter
--- OUTSIDE RECORDS SUMMARY | 2025-02-16 08:54 | XMS_ITS | Encounter Summary ---
Author Organization [facility] Address [address] [place] [address] Phone Care Team Providers Care Plastic Fabricator Name Role Phone Kimberlee Mcneil Primary Care Provider + Bill Garrido MD Unavailable [phone] Encounter Details Date Type Department Care Team (Late st Contact Info) Description 09/06/2023 Behavioral Health [facility] 1 [place] [address] Deepika Gifford, [facility] #1 [place] [address] Social History Tobacco Use Types Packs/Day Years Used Date Smoking Tobacco: Former Cigarettes 1 30 Smokeless Tobacco: Never Alcohol Use Standard Drinks/Week Comments Not Currently 0 (1 standard drink = 0.6 oz pure alcohol) Hasn't drank since of daughter 44 years ago. Personal Choice. [facility] Utilities Answer Date Recorded In the past 12 months has [employer], gas, oil, or water company threatened to [...] often do you attend chur ch or hoahaoism services? More than 4 times per year 07/06/2023 Do you belong to any clubs o r organizations such as anglican groups, unions, fraternal or athletic groups, or [...] place to sleep or slept in a long term (including now)? No 07/06/2023 Education Answer Date [...] st Contact Info) Description 02/28/2025 12:45 PM LEGAL COORDINATOR Telemedicine [facility] 1 [place] [address] Deepika Gifford, AGRICULTURAL SERVICE WORKER [address] [place] [address] Discharge Disposition: Discharged to home or Selfcare 03/06/2025 9:20 AM LEGAL COORDINATOR Immunization [facility] [place] #2 [place] [address] 03/12/2025 1:00 PM LEGAL COORDINATOR Telemedicine [facility] Behavior[facility] Services 1 [place] [address] Deepika Gifford, AGRICULTURAL SERVICE WORKER [address] [place] [address] Discharge Disposition: Discharged to home or Selfcare 03/19/2025 10:40 AM LEGAL COORDINATOR Office Visit [facility] - [facility] #2 [place] [address] Alizescoobyyasmine Kimberlee Mcdonough, PAC [address] [place] [address] documented as of this encounter Goals Goal Patient Goal Type Associated Problems Recent Progress Patient-Stated? Author ANXIETY Anxiety On track( 025 1:38 PM LEGAL COORDINATOR) No Deepika Gifford, AGRICULTURAL SERVICE WORKER Note: Goal: Mariela to be able to report decreased anxiety/panic attacks/ability to cope with stressors, to an acceptable level, within the next three month. Goal Reviewed with: patient Readiness to change: Ready to change Department associated with goal: [facility] Steps to achieve [...] Behavioral Health On track( 025 1:38 PM LEGAL COORDINATOR) Yes Khalida Flores LCSW Note: Goal Reviewed with: patient Readiness to change: Ready to change Department associated with goal: [facility] Steps to achieve [...] documented as of this encounter Care Teams Plastic Fabricator Relationship Specialty Start Date End Date Kimberlee Mcneil PAC [address] [place] [address] PCP - General Physician Motel Manager 03/18/17 Bill Garrido MD [address] [facility] [address] [address] Consulting Physician Otolaryngology 01/03/25 documented as of this encounter
--- OUTSIDE RECORDS SUMMARY | 2025-02-16 08:54 | XMS_ITS | Encounter Summary ---
Author Organization [facility] Address [address] [place] [address] Phone Care Team Providers Care Operator Assistant I Cementing Name Role Phone Kimberlee Mcneil Primary Care Provider + Bill Garrido MD Unavailable [phone] Reason for Visit * Reason Comments Medication Refill Encounter Details Date Type Department Care Team (Late st Contact Info) Description 06/02/2023 Refill [facility] [address] [place] [address] Kimberlee Mcneil PAC [address] [place] [address] Medication Refill Social History Tobacco Use Types [...] Encounter - Betsy Yepez RN - 06/03/2023 8:07 AM CDT Medication(s) refilled and [facility] Medication Refill Standing Order for Pediatricand Adult Patients. Requested Prescriptions Pending Prescriptions Disp Refills potassium chloride (MICRO-K) 10 MEQ Capsule CR [Pharmacy Med Name: POTASSIUM CL ER 10 MEQ CAPSULE] 270 Capsule 1 Sig: TAKE 3 CAPSULES BY MOUTH EVERY DAY Potassium Supplement Protocol Passed - 06/02/2023 1:04 PM Passed - Normal serum potassium in past 12 months POTASSIUM Date Value Ref Range Status 09/03/2022 3.7 3.5 - 5.1 mmol/L Final Passed - Visit with relevant provider in past 12 months or upcoming 90 days Recent Visits Date Type Provider Dept 03/08/23 Office Visit Kimberlee Mcneil PAC [facility] 12/18/22 Office Visit Kimberlee Mcneil PAC [facility] 09/03/22 Office Visit Kimberlee Mcneil PAC [facility] [place] Showing recent visits within past 365 days and meeting all other requirements Future Appointments Date Type Provider Dept 07/06/23 Appointment Kimberlee Mcneil PAC [facility] [place] Showing future appointments within next 90 days and meeting all other requirements documented in this encounter Plan of Treatment Upcoming Encounters Date Type Department Care Team (Late st Contact Info) Description 02/28/2025 12:45 PM WHARF TALLY CLERK Telemedicine [facility] [address] [place] [address] Deepika Gifford, SCREEN EXAMINER [address] [place] [address] Discharge Disposition: Discharged to home or Selfcare 03/06/2025 9:20 AM WHARF TALLY CLERK Immunization [facility] - [facility] - [place] [address] [place] [address] 03/12/2025 1:00 PM WHARF TALLY CLERK Telemedicine [facility] Behavior[facility] Health Services [address] [place] [address] Deepika Gifford, SCREEN EXAMINER [address] [place] [address] Discharge Disposition: Discharged to home or Selfcare 03/19/2025 10:40 AM WHARF TALLY CLERK Office Visit [facility] [address] [place] [address] Kimberlee Mcneil, PAC [address] [place] [address] documented as of this encounter Goals Goal Patient Goal Type Associated Problems Recent Progress Patient-Stated? Author ANXIETY Anxiety On track( 025 1:38 PM WHARF TALLY CLERK) No Deepika Gifford, SCREEN EXAMINER Note: Goal: Mariela to be able to report decreased anxiety/panic attacks/ability to cope with stressors, to an acceptable level, within the next three month. Goal Reviewed with: patient Readiness to change: Ready to change Department associated with goal: [facility] Steps to achieve [...] Behavioral Health On track( 025 1:38 PM WHARF TALLY CLERK) Yes Khalida Flores, SCREEN EXAMINER Note: Goal Reviewed with: patient Readiness to change: Ready to change Department associated with goal: [facility] Steps to achieve [...] documented as of this encounter Care Teams Operator Assistant I Cementing Relationship Specialty Start Date End Date Kimberlee Mcneil PAC [address] [place] [address] PCP - General Physician Radius Corner Machine Operator 03/18/17 Bill Garrido MD [address] [place] [address] [address] Consulting Physician Otolaryngology 01/03/25 documented as of this encounter
--- OUTSIDE RECORDS SUMMARY | 2025-02-16 08:54 | XMS_ITS | Encounter Summary ---
Author Organization [facility] Address [address] [place] [address] Phone Care Team Providers Care Stock Shaper Name Role Phone Kimberlee Mcneil Primary Care Provider + Bill Garrido MD Unavailable [phone] Encounter Details Date Type Department Care Team (Late st Contact Info) Description 06/22/2024 Behavioral Health Patient Survey [facility] Services [address] [place] [address] Deepika Gifford, [facility] [address] [place] [address] Social History Tobacco Use Types Packs/Day Years Used Date Smoking Tobacco: Former Cigarettes 1 30 Smokeless Tobacco: Never Alcohol Use Standard Drinks/Week Comments Not Currently 0 (1 standard drink = 0.6 oz pure alcohol) Hasn't drank since of daughter 44 years ago. Personal Choice. [facility] Utilities Answer Date Recorded In the past 12 months has [employer], gas, oil, or water company threatened to [...] often do you attend chur ch or mormonism services? More than 4 times per year 07/06/2023 Do you belong to any clubs o r organizations such as gnosticism groups, unions, fraternal or athletic groups, or [...] Total Score - Questions 1-9 0 04/02 [facility] of Occupat ional Health - Occupational Stress [...] place to sleep or slept in a detention (including now)? No 07/06/2023 Education Answer Date [...] st Contact Info) Description 02/28/2025 12:45 PM ICU SPECIALIST Telemedicine [facility] Behavior[facility] Services [address] [place] [address] Deepika Gifford, LICENSED NUCLEAR OPERATOR [address] [place] [address] Discharge Disposition: Discharged to home or Selfcare 03/06/2025 9:20 AM ICU SPECIALIST Immunization [facility] - [place] [address] [place] [address] 03/12/2025 1:00 PM ICU SPECIALIST Telemedicine [facility] Behavior[facility] Services [address] [place] [address] Deepika Gifford, LICENSED NUCLEAR OPERATOR [address] [place] [address] Discharge Disposition: Discharged to home or Selfcare 03/19/2025 10:40 AM ICU SPECIALIST Office Visit [facility] - [facility] [address] [place] [address] Alizescoobyyasmine Kimberlee Mcdonough, PAC [address] [place] [address] documented as of this encounter Goals Goal Patient Goal Type Associated Problems Recent Progress Patient-Stated? Author ANXIETY Anxiety On track( 025 1:38 PM ICU SPECIALIST) No Deepika Gifford, LICENSED NUCLEAR OPERATOR Note: Goal: Mariela to be able to report decreased anxiety/panic attacks/ability to cope with stressors, to an acceptable level, within the next three month. Goal Reviewed with: patient Readiness to change: Ready to change Department associated with goal: [facility] Steps to achieve [...] Behavioral Health On track( 025 1:38 PM ICU SPECIALIST) Yes Khalida Flores LCSW Note: Goal Reviewed with: patient Readiness to change: Ready to change Department associated with goal: [facility] Steps to achieve [...] Total Score: 0 04/24/19 25 11:08 AM ICU SPECIALIST documented as of this encounter Care Teams Stock Shaper Relationship Specialty Start Date End Date Kimberlee Mcneil PAC [address] [place] [address] PCP - General Physician Nightman 03/18/17 Bill Garrido MD [address] [place] [address] [address] Consulting Physician Otolaryngology 01/03/25 documented as of this encounter
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
--- OUTSIDE RECORDS SUMMARY | 2025-02-16 08:54 | XMS_ITS | Encounter Summary ---
Author Organization [facility] Address [address] [place] [address] Phone Care Team Providers Care Car Salesman Name Role Phone Kimberlee Mcneil Primary Care Provider + Bill Garrido MD Unavailable [phone] Encounter Details Date Type Department Care Team (Late st Contact Info) Description 08/03/2024 Behavioral [facility] [address] [place] [address] Deepika Gifford, [facility] [address] [place] [address] Social History Tobacco Use Types Packs/Day Years Used Date Smoking Tobacco: Former Cigarettes 1 30 Smokeless Tobacco: Never Alcohol Use Standard Drinks/Week Comments Not Currently 0 (1 standard drink = 0.6 oz pure alcohol) Hasn't drank since of daughter 44 years ago. Personal Choice. [facility] Utilities Answer Date Recorded In the past 12 months has [employer], gas, oil, or water company threatened to [...] Total Score - Questions 1-9 0 04/02 [facility] of Occupat ional Health - Occupational [...] place to sleep or slept in a residential (including now)? No 07/06/2023 Education Answer Date [...] st Contact Info) Description 02/28/2025 12:45 PM BRANCH RETAIL EXECUTIVE Telemedicine [facility] Behavior[facility] Health Services [address] [place] [address] Deepika Gifford, PATTERN GRADER SUPERVISOR [address] [place] [address] Discharge Disposition: Discharged to home or Selfcare 03/06/2025 9:20 AM BRANCH RETAIL EXECUTIVE Immunization [facility] - [place] [address] [place] [address] 03/12/2025 1:00 PM BRANCH RETAIL EXECUTIVE Telemedicine [facility] Behavior[facility] Health Services [address] [place] [address] Deepika Gifford, PATTERN GRADER SUPERVISOR [address] [place] [address] Discharge Disposition: Discharged to home or Selfcare 03/19/2025 10:40 AM BRANCH RETAIL EXECUTIVE Office Visit [facility] #[address] [place] [address] Alizescoobyyasmine Kimberlee Mcdonough, PAC [address] [place] [address] documented as of this encounter Goals Goal Patient Goal Type Associated Problems Recent Progress Patient-Stated? Author ANXIETY Anxiety On track( 025 1:38 PM BRANCH RETAIL EXECUTIVE) No Deepika Gifford, PATTERN GRADER SUPERVISOR Note: Goal: Mariela to be able to report decreased anxiety/panic attacks/ability to cope with stressors, to an acceptable level, within the next three month. Goal Reviewed with: patient Readiness to change: Ready to change Department associated with goal: [facility] Steps to achieve [...] Behavioral Health On track( 025 1:38 PM BRANCH RETAIL EXECUTIVE) Yes Khalida Flores LCSW Note: Goal Reviewed with: patient Readiness to change: Ready to change Department associated with goal: [facility] Steps to achieve [...] Total Score: 0 04/24/19 25 11:08 AM BRANCH RETAIL EXECUTIVE documented as of this encounter Care Teams Car Salesman Relationship Specialty Start Date End Date Kimberlee Mcneil PAC [address] [place] [address] PCP - General Physician Wax Room Supervisor 03/18/17 Bill Garrido MD [address] [place] [address] [address] Consulting Physician Otolaryngology 01/03/25 documented as of this encounter
--- OUTSIDE RECORDS SUMMARY | 2025-02-16 08:54 | XMS_ITS | Encounter Summary ---
Author Organization [facility] Address [address] [place] [address] Phone Care Team Providers Care Insurance Claims Specialist Name Role Phone Kimberlee Mcneil Primary Care Provider + Bill Garrido MD Unavailable [phone] Reason for Visit * Reason Comments Medication Refill Encounter Details Date Type Department Care Team (Late st Contact Info) Description 01/12/2021 Refill [facility] [address] [place] [address] Kimberlee Mcneil, PAC [address] [place] [address] Medication Refill Social History Tobacco Use Types Packs/Day Years Used Date Smoking Tobacco: Former Cigarettes Smokeless Tobacco: Never Alcohol Use Standard Drinks/Week Comments Not Currently 0 (1 standard drink = 0.6 oz pure alcohol) Hasn't drank since of daughter 44 years ago. Personal Choice. PHQ-2 Answer Date Recorded Total Score - Questions 1-9 0 04/2020 Education Answer Date Recorded What is the [...] Telephone Encounter - Betsy Yepez RN - 01/13/2021 10:09 AM CST Follow up 01/20/21 Medication failed the protocol, provider to review and approve the medication order if appropriate. Requested Prescriptions Pending Prescriptions Disp Refills potassium chloride (MICRO-K) 10 MEQ Capsule CR [Pharmacy Med Name: POTASSIUM CL ER 10 MEQ CAPSULE] 60 Capsule 5 Sig: TAKE 2 CAPSULES BY MOUTH EVERY DAY Potassium Supplement Protocol Failed - 01/12/2021 12:12 AM Failed - Normal serum potassium in past 12 months No results found for: POTASSIUM, POCTK Passed - Visit with relevant provider in past 12 months or upcoming 90 days Recent Visits Date Type Provider Dept 07/23/20 Office Visit Kimberlee Mcneil PAC [facility] 02/26/20 Office Visit Kimberlee Mcneil PAC [facility] Showing recent visits within past 365 days and meeting all other requirements Future Appointments Date Type Provider Dept 01/20/21 Appointment Kimberlee Mcneil PAC [facility] Showing future appointments within next 90 days and meeting all other requirements DELIVERY documented in this encounter Plan of Treatment Upcoming Encounters Date Type Department Care Team (Late st Contact Info) Description 02/28/2025 12:45 PM VP DELIVERY Telemedicine [facility] [address] [place] [address] Deepika Gifford, CLEARING DISTRIBUTION CLERK [address] [place] [address] Discharge Disposition: Discharged to home or Selfcare 03/06/2025 9:20 AM VP DELIVERY Immunization [facility] - [place] [address] [place] [address] 03/12/2025 1:00 PM VP DELIVERY Telemedicine [facility] Behavioral Health Services 1 [place] [address] Deepika Gifford, CLEARING DISTRIBUTION CLERK [address] [place] [address] Discharge Disposition: Discharged to home or Selfcare 03/19/2025 10:40 AM VP DELIVERY Office Visit [facility] - [facility] [address] [place] [address] Gita Mcneila Marie, PAC [address] [place] [address] documented as of this encounter Goals Goal Patient Goal Type Associated Problems Recent Progress Patient-Stated? Author ANXIETY Anxiety On track( 025 1:38 PM VP DELIVERY) No Deepika Gifford, ANTONIO Note: Goal: Mariela to be able to [...] Behavioral Health On track( 025 1:38 PM VP DELIVERY) Yes Khalida Flores LCSW Note: Goal Reviewed [...] documented as of this encounter Care Teams Insurance Claims Specialist Relationship Specialty Start Date End Date Kimberlee Mcneil PAC [address] [place] [address] PCP - General Physician Bank Messenger 03/18/17 Bill Garrido MD [address] [address] Consulting Physician Otolaryngology 01/03/25 documented as of this encounter
== END 2025-02-16 08:47 | disposition home or self-care (01) ==
PROVIDERS: PCP Otolaryngology Otolaryngology/Facial Plastic Surgery; Visit Provider Otolaryngology Otolaryngology/Facial Plastic Surgery
DX: H90.3 Sensorineural hearing loss, bilateral (principal); H93.13 Tinnitus, bilateral; H93.8X9 Other specified disorders of ear, unspecified ear; H61.21 Impacted cerumen, right ear; R42 Dizziness and giddiness; H61.23 Impacted cerumen, bilateral; H60.391 Other infective otitis externa, right ear
CPT/HCPCS: 92557; 92567